=== PATIENT | female | born 1980 | race Caucasian/White ===

== ENCOUNTER 2020-04-03 04:52 | Emergency (ER) | payer OTHER, BC, SELFPAY ==
--- NOTE | ~2020-04-03 | CT_ITS ---
EXAMINATION: CT abdomen pelvis wo con DATE: 04/03/2020 06:36 INDICATION: Right flank pain radiating to the right lower quadrant. Nausea. TECHNIQUE: Computed tomography (CT) of the abdomen and pelvis was performed without intravenous contr ast. Automated exposure control and iterative reconstruction technique were employed. The dose-length product was 675.95 mGy-cm. COMPARISON: None FINDINGS: Lung bases are clear. Heart size is normal. No pericardial or pleural effusion. Gallbladder is not vi sualized and likely surgically absent. Liver, spleen, pancreas, bilateral adrenal glands and kidneys are normal. Bladder, uterus and bilateral adnexa are normal. There are multiple small calcifications along the margins of the uterus most likely phleboliths although a couple are located along the expec antony course of the distal right ureter and a ureteral stone cannot be absolutely excluded although the re is no hydronephrosis, hydroureter or more proximal periureteral stranding to elevate suspicion. Chava wels including the appendix are normal. Trace amount of likely physiologic free fluid in the cul-de-s ac. No pathologically enlarged abdominal or pelvic lymphadenopathy. Mild lumbar dextrocurvature. IMPRESSION: 1. Several small calcifications in the right hemipelvis most likely representing phleboliths although a nonobstructing distal ureteral stone could not be absolutely excluded. Suspicion ureteral stone is low but would correlate with urinalysis. No other acute intra-abdominal/pelvic process. Reviewed, dictated and finalized at location A. IMPRESSION: 1. Several small calcifications in the right hemipelvis most likely representin g phleboliths although a nonobstructing distal ureteral stone could not be abso lutely excluded. Suspicion ureteral stone is low but would correlate with urina lysis. No other acute intra-abdominal/pelvic process.
[2020-04-03 04:54] VITALS: BP 145/106; PULSE 88; RESP 16; TEMP 36.9; O2SAT 99
--- NOTE | 2020-04-03 05:06 | ED.ABDPAIN ---
HPI - Abdominal Pain General Chief Complaint: Abdominal Pain Stated Complaint: abd pain History of Present Illness HPI narrative: Patient is a 39-year-old female who presents the ER with abdominal pain. Sudden onset this evening. Fullness in her upper abdomen radiating to the right back. Associate with nausea but no vomiting. Symptoms are worse with movement and better with sitting still. Has not had similar pain in the past. Has history of cholecystectomy. No urinary symptoms. Related Data Allergies Allergy/AdvReac Type Severity Reaction Status Date / Time gentamicin Allergy Intermediate rash, Verified 04/03/20 04:57 short of breath latex Allergy Intermediate rash Verified 08/22/10 12:30 Review of Systems Review of Systems: All systems reviewed & are unremarkable except as noted in HPI and below Constitutional: Constitutional: Denies chills, Denies fever(s) and Denies weakness ENT: Denies nasal congestion and Denies sore throat Respiratory: Respiratory: Denies cough and Denies dyspnea Gastrointestinal: Gastrointestinal: Reports abdominal pain, Denies diarrhea, Reports nausea and Denies vomiting Genitourinary: Genitourinary: Denies hematuria, Denies nocturia and Denies dysuria PMFSH Past Medical History Medical History (Updated 04/03/20 @ 07:18 by Natanael Knapp MD) Patient denies significant medical history Surgical History Surgical History (Updated 04/03/20 @ 05:21 by Natanael Knapp MD) History of cholecystectomy History of tonsillectomy Social History Social History (Updated 04/03/20 @ 05:21 by Natanael Knapp MD) Smoking status: Never smoker Exam Narrative: Exam Narrative: GENERAL: Well-appearing, well-nourished, and in no acute distress. HEAD: Normocephalic, atraumatic. EYES: PERRL and EOMI. ENT: Mucous membranes moist. CHEST: Clear to auscultation. No respiratory distress. HEART: Regular rate and rhythm. Normal peripheral pulses. ABDOMEN: Soft, mild discomfort in epigastrium/ruq, nondistended, normal active bowel sounds. Mild right CVA tenderness. EXTREMITIES: Normal range of motion. No edema NEURO: Alert and oriented x3. PSYCH: Normal mood and affect. Course Course Emergency Course: Patient informed of results. She could still be passing a stone. Will provide supportive therapy for home and a work note. Vital Signs Vital signs: Vital Signs Temperature 98.4 F 06/09/20 04:54 Pulse Rate 88 04/03/20 04:54 Respiratory Rate 16 04/03/20 04:54 Blood Pressure 145/106 H 04/03/20 04:54 Pulse Oximetry 99 04/03/20 04:54 Temperature 98.4 F 04/03/20 04:54 Pulse Rate 99 04/03/20 06:04 Respiratory Rate 14 04/03/20 06:04 Blood Pressure 126/84 04/03/20 06:04 Pulse Oximetry 99 04/03/20 06:04 MDM - Abdominal Pain Lab Data Result diagrams: 04/03/20 05:04 04/03/20 05:04 Labs: Lab Results 04/03/20 04/03/20 04/03/20 Range/Units 05:04 05:04 06:10 WBC 5.2 (4.5-10.0) K/mm3 RBC 4.54 (4.2-5.4) M/mm3 Hgb 14.1 (12.0-15.0) g/dL Hct 42.8 (37.0-47.0) % MCV 94.3 (80-100) fl MCH 31.1 (26-34) pg MCHC 32.9 (32-36) g/dl RDW 13.1 (11.5-14.5) % Plt Count 236 (150-375) k/mm3 MPV 10.5 H (7.4-10.4) fl Immature Gran % (Auto) 0.2 (0-0.5) % Neut % (Auto) 49.3 (45.5-73.1) % Lymph % (Auto) 37.0 (18.3-44.2) % [place] % (Auto) 9.6 H (2.6-8.5) % Eos % (Auto) 3.3 (0-4.4) % Baso % (Auto) 0.6 (0.2-1.2) % Lymph # (Auto) 1.93 (0.9-3.2) K/mm3 [place] # (Auto) 0.5 (0.1-0.6) K/mm3 Eos # (Auto) 0.2 (0-0.3) K/mm3 Baso # (Auto) 0.0 (0.0-0.1) K/mm3 Abs Immat Gran (auto) 0.01 (0.00-0.031) K/mm3 Absolute Neuts (auto) 2.6 (1.3-6.7) K/mm3 Absolute Nucleated RBC 0.0 (0.0-0.012) K/mm3 Nucleated RBC % 0.0 (0.0-0.2) % Sodium 138 (137-145) mmol/L Potassium 3.8 (3.4-5.0) mmol/L Chloride 104 (98-107) mmol/L Carbon Seng
[2020-04-03] MEDS: ONDANSETRON INJ 4 MG/2 ML VIAL IV PUSH (05:12)
[2020-04-03 05:13] LABS: Basophils Percent Auto 0.6 % (0.2-1.2); Eosinophils Absolute Auto 0.2 K/mm3 (0-0.3); Eosinophils Percent Auto 3.3 % (0-4.4); Hematocrit 42.8 % (37.0-47.0); Hemoglobin 14.1 g/dL (12.0-15.0); Immature Granulocyte Absolute 0.01 K/mm3 (0.00-0.031); Immature Granulocyte Percent A 0.2 % (0-0.5); Lymphocytes Absolute Auto 1.93 K/mm3 (0.9-3.2); Mean Corpuscular HGB Conc 32.9 g/dl (32-36); Mean Corpuscular Hemoglobin 31.1 pg (26-34); Mean Corpuscular Volume 94.3 fl (80-100); Mean Platelet Volume 10.5 fl (7.4-10.4); Monocytes Absolute Auto 0.5 K/mm3 (0.1-0.6); Monocytes Percent Auto 9.6 % (2.6-8.5); Neutrophils Absolute Auto 2.6 K/mm3 (1.3-6.7); Neutrophils Percent Auto 49.3 % (45.5-73.1); Platelet Count Result 236 k/mm3 (150-375); Red Blood Count 4.54 M/mm3 (4.2-5.4); Red Cell Distribution Width 13.1 % (11.5-14.5); White Blood Count 5.2 K/mm3 (4.5-10.0)
--- NOTE | 2020-04-03 05:20 | PC.NURSE ---
Patient states she does not want pain medications at this time. EDP Ra notified.
[2020-04-03 05:30] LABS: Alanine Aminotransferase 12 U/L (4-35); Albumin Level 4.4 g/dL (3.5-5.1); Alkaline Phosphatase 97 U/L (38-126); Aspartate Amino Transferase 20 U/L (14-36); Bilirubin,Total 0.5 mg/dL (0.2-1.3); Blood Urea Nitrogen 11 mg/dL (7-17); Calcium 9.1 mg/dL (8.4-10.2); Carbon Dioxide 26 mmol/L (22-30); Chloride 104 mmol/L (98-107); Estimated CRCL calculation 63 ml/min; Estimated Glomerular Filt Rate 55; Glucose 102 mg/dL (65-105); Lipase 128 U/L (23-300); Potassium 3.8 mmol/L (3.4-5.0); Sodium 138 mmol/L (137-145)
--- NOTE | 2020-04-03 05:49 | PC.NURSE ---
Patient states she is still unable to provide a urine sample at this time.
[2020-04-03 06:04] VITALS: BP 126/84; PULSE 99; RESP 14; O2SAT 99
[2020-04-03 06:20] LABS: Add Urine Microscopic? NO; Appearance Urine Clear (Clear); Bilirubin Urine Negative (Negative); Blood Urine Negative (Negative); Color Urine Yellow (Yellow); Glucose Urine UA Negative (Negative); Ketones Urine Negative (Negative); Leukocyte Esterase Ur Negative LEU/UL (Negative); Nitrate Urine Negative (Negative); Protein Urine Negative (Negative); Specific Grav Ur 1.016 (1.001-1.035); Urobilinogen Urine Negative mg/dL (<2.0)
--- NOTE | 2020-04-03 06:29 | PC.NURSE ---
Patient to radiology.
[2020-04-03 07:17] VITALS: BP 132/88; PULSE 66; RESP 18; O2SAT 100
--- NOTE | 2020-04-03 07:19 | PC.NURSE ---
Doctor at bedside updating patient.
== END 2020-04-03 07:32 | disposition home or self-care (01) ==
PROVIDERS: Emergency Provider Emergency Medicine
DX: R10.10 Upper abdominal pain, unspecified (principal); R93.41 Abnormal radiologic findings on diagnostic imaging of renal pelvis, ureter, or bladder
CPT/HCPCS: 36415; 74176; 80053; 81003; 81025; 83690; 85025; 96374; 96375; 99284; J2405

== ENCOUNTER 2020-10-01 08:21 | Emergency (ER) | payer OTHER, SELFPAY ==
[2020-10-01] VITALS (42 sets, daily range): BP systolic 115–140; BP diastolic 82–99; PULSE 69–92; RESP 11–28; TEMP 36.8; O2SAT 94–100
--- NOTE | ~2020-10-01 | XR_ITS ---
EXAMINATION: XR chest 2V DATE: 10/01/2020 08:50 INDICATION: Chest pain. TECHNIQUE: Frontal and lateral views of the chest were obtained. COMPARISON: Chest single view 08/03/2019, CT abdomen and pelvis 04/03/2020 FINDINGS: The chest demonstrates clear lungs without pneumonia, pleural effusion, or pneumothorax. Th e heart size is normal. IMPRESSION: 1. . No acute cardiopulmonary disease. Reviewed, dictated and finalized at location B. CLE TECHNICIAN
--- NOTE | 2020-10-01 08:25 | ECG_ITS ---
Measurements Intervals [place] Rate: 77 P: 44 IN: 119 QRS: 38 QRSD: 89 T: 38 QT: 369 QTc: 418 Interpretive Statements SINUS RHYTHM WITH SHORT IN INTERVAL BORDERLINE ST-T WAVE ABNORMALITY- INFERIOR LEADS BORDERLINE ECG Electronically Signed On 10-01-2020 11:15:14 SENIOR TREASURY CONSULTANT by Tristan Moran D.O.
--- NOTE | 2020-10-01 08:36 | ED.CHESTPAIN ---
HPI - Chest Pain General Chief Complaint: Chest Pain Stated Complaint: chest pain x 1 week, worse today Time Seen by Provider: 10/01/20 08:35 Source: patient Mode of arrival: ambulatory Limitations: no limitations History of Present Illness HPI narrative: Patient is a 40-year-old female complaining of chest pain, midsternal, 6 out of 10, pressure accompanied by nausea and dizziness that started approximately 1 week ago. Patient states pain is worse today that is why she came in. Patient denies any shortness of breath, abdominal pain, vomiting, diaphoresis, fever or chills. Related Data Home Medications Medication Instructions Recorded Confirmed No Home Medications 10/01/20 10/01/20 Allergies Allergy/AdvReac Type Severity Reaction Status Date / Time gentamicin Allergy Intermediate rash, Verified 04/03/20 04:57 short of breath Review of Systems Review of Systems: All systems reviewed & are unremarkable except as noted in HPI and below Constitutional: Constitutional: Denies body ache(s), Denies chills, Denies excessive sweating, Denies fatigue, Denies fever(s), Denies headache(s), Denies lethargy, Denies malaise, Denies weakness and Denies weight loss Eyes: Eyes: Denies blurry vision, Denies change in vision and Denies loss of vision ENT: Denies dizziness, Denies ear discharge, Denies headache(s), Denies lip swelling, Denies epistaxis, Denies nasal congestion, Denies neck pain, Denies throat swelling and Denies tongue swelling Cardiovascular: Cardiovascular: Denies diaphoresis, Denies rapid heart rate, Denies edema, Denies irregular heart rhythm, Denies lightheadedness, Denies palpitations, Denies dyspnea and Denies dyspnea on exertion Respiratory: Respiratory: Denies chest congestion, Denies cough, Denies hemoptysis, Denies dyspnea and Denies dyspnea on exertion Gastrointestinal: Gastrointestinal: Denies abdominal pain, Denies melena, Denies hematochezia, Denies diarrhea, Denies vomiting and Denies hematemesis Musculoskeletal: Musculoskeletal: Denies abnormal gait, Denies deformity, Denies joint swelling, Denies limited range of motion, Denies neck pain and Denies numbness Neurologic: Denies Abnormal speech present, Denies abnormal gait, Denies confusion, Denies headache(s), Denies focal weakness, Denies loss of vision, Denies numbness, Denies Other visual disturbances, Denies Sensory deficit (Neuro) and Denies weakness Psychiatric: Psychiatric: Denies confusion, Denies depression, Denies auditory hallucinations, Denies homicidal ideation and Denies suicidal ideation Endocrine: Endocrine: Denies cold intolerance, Denies excessive sweating, Denies fatigue, Denies heat intolerance and Denies palpitations Hematologic/Lymphatic: Hematologic/Lymphatic: Denies easy bleeding and Denies easy bruising Allergic/Immunologic: Allergic/Immunologic: Denies lip swelling, Denies throat swelling and Denies tongue swelling PMFSH Past Medical History Medical History (Updated 10/01/20 @ 13:03 by Brien Archuleta MD) Patient denies significant medical history Surgical History Surgical History (Updated 04/03/20 @ 05:21 by Natanael Knapp MD) History of cholecystectomy History of tonsillectomy Social History Social History (Updated 04/03/20 @ 05:21 by Natanael Knapp MD) Smoking status: Never smoker Gender identity (if verbalized by the patient): Female Exam Const: General: cooperative, healthy appearing, comfortable, no acute distress, well developed, alert and awake; No confusion Orientation/consciousness: oriented to person, oriented to place, oriented to time, patient oriented x3 and No confusion Limitations: no limitations HENMT: Head: normal to inspection, normocephalic and atraumatic Ears: hearing grossly normal bilaterally, TM normal on the right and TM normal on the left General nose exam: Normal external nose present, Normal nares present and No nasal discharge present Face and sinus: norm
[2020-10-01] MEDS: ASPIRIN 81 MG CHEWABLE TABLET 324 MG PO (08:38)
[2020-10-01 08:46] LABS: Basophils Percent Auto 0.5 % (0.2-1.2); Eosinophils Absolute Auto 0.1 K/mm3 (0-0.3); Eosinophils Percent Auto 1.2 % (0-4.4); Hematocrit 42.4 % (37.0-47.0); Hemoglobin 14.3 g/dL (12.0-15.0); Immature Granulocyte Absolute 0.02 K/mm3 (0.00-0.031); Immature Granulocyte Percent A 0.3 % (0-0.5); Lymphocytes Absolute Auto 1.46 K/mm3 (0.9-3.2); Lymphocytes Percent Auto 19.5 % (18.3-44.2); Mean Corpuscular HGB Conc 33.7 g/dl (32-36); Mean Corpuscular Volume 94.9 fl (80-100); Monocytes Absolute Auto 0.7 K/mm3 (0.1-0.6); Monocytes Percent Auto 8.9 % (2.6-8.5); Neutrophils Absolute Auto 5.2 K/mm3 (1.3-6.7); Neutrophils Percent Auto 69.6 % (45.5-73.1); Platelet Count Result 271 k/mm3 (150-375); Red Blood Count 4.47 M/mm3 (4.2-5.4); White Blood Count 7.5 K/mm3 (4.5-10.0)
[2020-10-01 08:54] LABS: INR 0.9; Partial Thromboplastin Time 26.9 SECONDS (22.3-36.8); Prothrombin Time 13.2 Seconds (11.1-14.7)
[2020-10-01 09:00] LABS: Anion Gap 5 mmol/L (8-16); Blood Urea Nitrogen 13 mg/dL (7-17); Calcium 9.2 mg/dL (8.4-10.2); Carbon Dioxide 29 mmol/L (22-30); Chloride 105 mmol/L (98-107); Estimated CRCL calculation 68 ml/min; Estimated Glomerular Filt Rate > 60; Glucose 103 mg/dL (65-105); Potassium 4.2 mmol/L (3.4-5.0); Sodium 139 mmol/L (137-145)
[2020-10-01 09:12] LABS: Troponin I < 0.012 ng/mL (0.000-0.034)
--- NOTE | 2020-10-01 09:50 | PC.NURSE ---
lab aware of d dimer add on/ray.
[2020-10-01 10:07] LABS: D Dimer 0.41 ug/mL (<0.48)
--- NOTE | 2020-10-01 10:49 | PC.NURSE ---
UPON ROUNDING ON PT AND UPDATING HER WITH PT PLAN OF CARE TO REPEAT 3HOUR TROPONIN, SHE STATES THAT SHE WILL BE SPEAKING WITH CARDIOLOGY BEFORE I LEAVE BECAUSE MY BLOOD PRESSURE IS VAUGHN HIGH. PT BP 129/93. SANTO JEFF INFORMED OF PT CONCERNS AND IS AT BEDSIDE.
--- NOTE | 2020-10-01 11:09 | PC.NURSE ---
report to nela messina at this time. she has assumed pt care.
[2020-10-01 12:13] LABS: Troponin I < 0.012 ng/mL (0.000-0.034)
--- NOTE | 2020-10-01 13:13 | PM.CNCAR ---
Assessment and Plan Assessment and plan (1) Atypical chest pain: Code(s): R07.89 - Other chest pain Status: Acute Assessment and Plan: EKG personally reviewed with Dr. Cho at 1205 10/01/2020: Sinus rhythm with short MN interval (119ms) at 77 beats per minute. No acute ST T wave changes. Normal EKG. Troponin negative x1 Chest pain is atypical. If 2nd troponin is negative, she can be discharged from the emergency room. Follow-up with Primary Care Provider. Consider GI etiology. Recommend Nexium 20 mg b.i.d. Can continue Pepcid AC if desired. Also try Gaviscon. She is interested in changing to Dr. Cho from . She is to call the office for an appointment. Additional Plan Dr Cho in to examine at 1205 10/01/2020 OK to discharge if second troponin in negative History of Present Illness History of Present Illness Consult date/time: 10/01/20 11:35 Requesting physician: Brien Archuleta MD Consult reason: chest pain Reason For Visit: chest pain x 1 week, worse today Narrative: 40 year old female being seen in the ER at the request of Dr Archuleta for evaluation of chest pain. She describes her discomfort as a pressure in the upper right and left chest which radiated to her arms, up to the elbow, as well as up her neck. The discomfort started last Thursday after she experienced palpitations with an episode of tachycardia. The tachycardia broke but the chest discomfort did not. The discomfort waxed and waned Thursday, Thursday and became more constant on Thursday and worsened Thursday and today. She is unable to lay flat due to the pressure discomfort. It does resolve with sitting forward. She denied any associated shortness of breath, lightheadedness, dizziness or palpitations. It does not increase with deep inspiration. She has a history of GERD which resolved after her gallbladder was removed. She tried Pepcid AC without much relief. There is minimal discomfort to palpation at the left sternal border, 4th intercostal space. Today she had nausea and vomiting associated with the discomfort and decided to come to the emergency room for evaluation. She has no history hypertension, hyperlipidemia or diabetes. She quit smoking approximately 15 years ago. She has been followed by Dr. Zaira Calloway for a number of years as her father of a myocardial infarction at age 45. Review of Systems Constitutional: Constitutional: Denies chills, Reports difficulty sleeping (Due to discomfort), Reports fatigue, Denies fever(s), Reports headache(s) ( occasional), Reports night sweats ( on Thursday), Denies weight gain and Denies weight loss Eyes: Eyes: Denies blind spots, Denies blurry vision, Denies change in vision, Denies diplopia and Reports floaters ( 1-2 years) ENT: Reports Normal hearing present, Denies bleeding gums, Denies vertigo, Denies dizziness, Reports headache(s) ( occasional), Reports hoarseness ( ), Reports nasal congestion and Reports other ( seasonal allergies) Cardiovascular: Cardiovascular: Reports chest pain ( per HPI), Denies syncope, Reports rapid heart rate ( Thursday, September 25, 2020), Denies leg edema, Denies lightheadedness, Denies dyspnea, Denies dyspnea on exertion, Denies orthopnea and Reports other ( varicose veins) Respiratory: Respiratory: Denies change in phlegm color, Denies chest congestion, Reports cough ( Dry. Hacking. Increased in the morning), Denies hemoptysis, Denies dyspnea, Denies dyspnea on exertion and Denies wheezing Gastrointestinal: Gastrointestinal: Reports abdominal pain ( after eating Thursday), Denies hematochezia, Denies change in bowel habits, Denies constipation, Reports heartburn, Denies diarrhea, Reports nausea ( today) and Reports vomiting ( today) Genitourinary: Genitourinary: Denies hematuria and Reports urinary incontinence ( stress incontinence) Musculoskeletal: Musculoskeletal: De
== END 2020-10-01 13:24 | disposition home or self-care (01) ==
PROVIDERS: Emergency Provider Emergency Medicine; PCP Internal Medicine
DX: R07.89 Other chest pain (principal)
CPT/HCPCS: 36415; 71046; 80048; 84484; 85025; 85380; 85610; 85730; 93005; 99284; A9270

== ENCOUNTER → 2021-01-02 14:00 | Outpatient (CLI) | payer OTHER, SELFPAY ==
--- NOTE | ~2021-01-02 | MR_ITS ---
EXAMINATION: MR brain/brain stem wo/w con DATE: 01/02/2021 15:57 INDICATION: Right hemiparesis. Cranial neuropathy. TECHNIQUE: Magnetic resonance imaging (MRI) of the brain and brainstem was performed without and with 15 mL MultiHance intravenous contrast. Sequences included sagittal and axial T1-weighted FSE, axial diffusion-weighted FS EPI, axial T2*-weighted GRE, axial T2-weighted FLAIR Propeller, and axial T2-we ighted Propeller. Postcontrast sequences included axial and coronal T1-weighted FSE. Apparent diffusi on coefficient (ADC) maps were created. COMPARISON: None. FINDINGS: There is no intracranial hemorrhage or acute infarct. There is an enhancing extra-axial mas s to the right of the dina with mass effect on the dina. The mass either involves the right side of t he cavernous sinus or exerts mass effect on the cavernous sinus. The mass measures 2.1 x 1.9 x 2.4 cm . There is no visible fluid in Meckel cave on the right. The ventricles are normal in size. The masto id air cells are normal. The paranasal sinuses are clear. The orbits are normal. IMPRESSION: 1. 2.4 cm extra-axial mass to the right of the dina and at the right side of the cavernous sinus. The differential diagnosis includes meningioma and trigeminal schwannoma. Reviewed, dictated and finalized at location A. CARPENTER IMPRESSION: 1. 2.4 cm extra-axial mass to the right of the dina and at the right side of th e cavernous sinus. The differential diagnosis includes meningioma and trigemina l schwannoma.
--- NOTE | ~2021-01-02 | MR_ITS ---
EXAMINATION: MR cervical spine wo con DATE: 01/02/2021 15:23 INDICATION: Cervical radiculopathy. TECHNIQUE: Magnetic resonance imaging (MRI) of the cervical spine was performed without intravenous c ontrast. Sequences included sagittal T2-weighted FSE, sagittal STIR FSE, sagittal T1-weighted FSE, ax ial MERGE, and axial T2-weighted FSE. COMPARISON: None FINDINGS: There is hypolordosis of cervical spine. Vertebral body heights are normal. Intervertebral disc heights are normal. At C7, there is syringohydromyelia with maximum diameter of 1 mm. The follow ing disc levels are specifically discussed: C2-C3 through C4-C5: The disc does not extend beyond the endplate margin. There is no uncovertebral j oint osteoarthritis. There is no facet joint osteoarthritis. There is no neural foraminal stenosis. T here is no central canal stenosis. C5-C6: There is a central protrusion. There is no uncovertebral joint osteoarthritis. There is no fac et joint osteoarthritis. There is no neural foraminal stenosis. There is mild central canal stenosis. C6-C7: There is a central protrusion. There is no uncovertebral joint osteoarthritis. There is no fac et joint osteoarthritis. There is no neural foraminal stenosis. There is mild central canal stenosis. C7-T1: The disc does not extend beyond the endplate margin. There is no uncovertebral joint osteoarth ritis. There is mild right and moderate left facet joint osteoarthritis. There is mild left neural fo raminal stenosis. There is no central canal stenosis. IMPRESSION: 1. Mild cervical spondylosis. 2. 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 Reviewed, dictated and finalized at location A. RVISOR MOLD YARD
[2021-01-02 15:18] LABS: Estimated Glomerular Filt Rate > 60
== END ==
PROVIDERS: PCP Internal Medicine; Visit Provider Internal Medicine
DX: M47.22 Other spondylosis with radiculopathy, cervical region (principal); G62.9 Polyneuropathy, unspecified
CPT/HCPCS: 70553; 72141; A9577

== ENCOUNTER 2021-02-22 15:49 | Emergency (ER) | payer OTHER, SELFPAY ==
--- NOTE | ~2021-02-22 | XR_ITS ---
EXAMINATION: XR ankle RT min 3V, XR foot RT min 3V DATE: 02/22/2021 16:40 INDICATION: Right foot and ankle pain TECHNIQUE: 1. Anteroposterior, mortise, additional oblique and lateral view of the right ankle were obtained. 2. Dorsoplantar, two oblique and lateral views of the right foot were obtained. COMPARISON: None. FINDINGS: Alignment of the foot and ankle is normal. No fracture or osteochondral lesion. Joint spaces are well maintained. No ankle joint effusion. The soft tissues are unremarkable. IMPRESSION: 1. Negative right foot and ankle radiographs. Reviewed, dictated and finalized at location A. IMPRESSION: 1. Negative right foot and ankle radiographs.
[2021-02-22 16:01] VITALS: BP 135/87; PULSE 77; RESP 20; TEMP 36.3; O2SAT 100
--- NOTE | 2021-02-22 16:15 | ED.LOWEXIN ---
HPI - Extremity Injury (Lower) General Chief Complaint: Extremity Injury, Lower Stated Complaint: right ankle pain, fall Time Seen by Provider: 02/22/21 16:05 Source: patient Mode of arrival: wheelchair Limitations: no limitations History of Present Illness HPI Narrative: This is a 40 year old female that presents to the ER for right ankle and foot pain after an injury today. Reports she was walking out of work and twisted her ankle stepping onto a curb. Reports pain and swelling to the lateral ankle. Worse with movement and relieved with rest. Reports decreased range of motion due to pain. Denies numbness. Related Data Home Medications Medication Instructions Recorded Confirmed ascorbic acid 125 mg-collagen, cap PO 11/27/20 11/27/20 hydrolyzed 740 mg capsule Allergies Allergy/AdvReac Type Severity Reaction Status Date / Time gentamicin Allergy Intermediate rash, Verified 11/27/20 09:33 short of breath Review of Systems Review of Systems: Narrative: CONSTITUTIONAL: Denies fever MUSCULOSKELETAL: Reports joint pain, and myalgia. NEUROLOGIC: Denies numbness All systems reviewed & are unremarkable except as noted in HPI and below PMFSH Past Medical History Medical History (Updated 02/22/21 @ 17:05 by Aissatou Hudson PA-C) Anxiety GERD (gastroesophageal reflux disease) Surgical History Surgical History History of breast biopsy History of cholecystectomy History of dilation and curettage History of laparoscopy History of tonsillectomy Family History Family History Father Acute myocardial infarction, Onset Age: 45 Sibling Thrombosis Grandparent Diabetes mellitus Cerebrovascular accident Mother Hypertension Social History Social History Years smoked: 8 Smoking status: Former smoker Tobacco type: cigarettes Alcohol intake: never Substance use: never Substance use type: does not use Additional living arrangements comments: . Designates , Oumar Rai as surrogate. 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 HEAD: Normocephalic, atraumatic. EYES: EOMI. EXTREMITIES: Decreased active range of motion in the right ankle due to pain. No obvious deformity. Normal DP pulses. Normal sensation SKIN: Warm, dry, no rash. NEURO: No focal deficits. Alert and oriented x3. PSYCH: Normal mood and affect Course Vital Signs Vital signs: Vital Signs Temperature 97.3 F L 02/22/21 16:01 Pulse Rate 77 02/22/21 16:01 Respiratory Rate 20 02/22/21 16:01 Blood Pressure 135/87 02/22/21 16:01 Pulse Oximetry 100 02/22/21 16:01 Temperature 97.3 F L 02/22/21 16:01 Pulse Rate 77 02/22/21 16:01 Respiratory Rate 20 02/22/21 16:01 Blood Pressure 135/87 02/22/21 16:01 Pulse Oximetry 100 02/22/21 16:01 MDM - Extremity Injury (Lower) MDM Narrative Medical decision making narrative: Patient presents the emergency department for right ankle pain after an injury today. She is neurovascularly intact. Right foot and ankle x-rays are without acute osseous abnormalities. Patient was instructed on care of ankle sprain. She is to follow-up with primary care doctor. She was given warnings to return to the ER Imaging Data Radiologist's impression: ITS Impressions Ankle X-Ray 02/22/21 16:43 IMPRESSION: 1. Negative right foot and ankle radiographs. Foot X-Ray 02/22/21 16:43 IMPRESSION: 1. Negative right foot and ankle radiographs. Critical Care Time Critical Care Time Critical Care Time: No Discharge Plan Discharge Clinical Impression: Right ankle
[2021-02-22] MEDS: IBUPROFEN SUSPENSION 200 MG/10 ML UDC 600 MG PO (16:21)
== END 2021-02-22 17:10 | disposition home or self-care (01) ==
PROVIDERS: Emergency Provider Emergency Medicine; PCP Internal Medicine
DX: S93.401A Sprain of unspecified ligament of right ankle, initial encounter (principal); K21.9 Gastro-esophageal reflux disease without esophagitis; Z87.891 Personal history of nicotine dependence; X50.9XXA Other and unspecified overexertion or strenuous movements or postures, initial encounter
CPT/HCPCS: 73610; 73630; 99283; A9270

== ENCOUNTER 2021-06-11 07:30 | Outpatient (RCR) | payer OTHER, SELFPAY ==
--- NOTE | 2021-04-19 11:01 | PTOPEVAL ---
Thank you for referring Merle Winkler to [facility].? The patient is scheduled to be seen for therapy?2 x/week for 6 weeks. Please review, sign, date and return this plan of care MILY. I agree with and certify that the following plan of care is medically necessary. Referring Physician Date Attending Provider: Mimi Sequeira NP Diagnosis right ankle sprain Onset 02/22/21 Cause slipped on gravel Additional Evaluation Detail Previous exercise walking, running, light resistance. She has not returned to exercise program due to pain. Subjective Information She reports limitation with Query Text:As Reported By Patient/ walking, standing, negotiating Family steps with descending worse than ascending. C/o stiffness and tightness of the ankle. She c/o swelling of ankle. She has increased stiffness in the morning or prolonged sitting. She was in a walking boot and crutches for <1 week due to pain with pressure. She switched to knee scooter. She did NWB due to pain with all WB activities for 3-4 wks. She was performing limited ankle motions of alphabet and circles. She is wearing ankle brace, heat/ice for the symptoms. Diagnostic Tests X-Rays For This Problem Yes: negative Pain Assessment Self Report Pain Assessment Right Ankle(s) Reported Pain Level 2 Pain Description Aching,Tightness Pain Frequency Continuous Lowest Pain Intensity 1 Greatest Pain Intensity 8 Pain Aggravating Factors Exercise/Activity,Lifting, Prolonged Position,Stair Climbing,Walking,Weight Bearing/Standing Pain Score Pain Score 2: Self Report Lower Extremity Range of Motion Ankle/Foot Range of Motion Left Ankle Dorsiflexion With Knee Extension 2 Range of Motion - Active Ankle Plantarflexion Range of Motion - 55 Active Query Text: Ankle Eversion Range of Motion - Active 25 Ankle Inversion Range of Motion - Active 40 Right Ankle Dorsiflexion With Knee Extension 2 Range of Motion - Active Ankle Dorsiflexion With Knee Flexed 55 Range of Motion - active
--- NOTE | 2021-05-07 08:36 | PCPTNOTE ---
Patient called & cancelled scheduled appointment this date due to having to work.
--- NOTE | 2021-05-23 08:42 | PTOPEVAL ---
Thank you for referring Merle Winkler to [facility].?Merle has attended 7 therapy visits to address her ankle impairments. She is progressing towards her therapy goals. See summary below for her progress. The patient is scheduled to be seen for therapy? 2 x/week for 2weeks, then 1 visit for 1 week. Please review, sign, date and return this plan of care MILY. I agree with and certify that the following plan of care is medically necessary. Referring Physician Date Attending Provider: Mimi Sequeira NP Diagnosis right ankle sprain Onset 02/22/21 Cause slipped on gravel Additional Evaluation Detail Previous exercise walking, running, light resistance. She has not returned to exercise program due to pain. Subjective Information She reports her ankle Query Text:As Reported By Patient/ continues to swell with Family prolonged standing and working. She has been able to walk for exercise, but unable to tolerate running due to increased pain. She is able to walk even ground without difficulty. But difficulty walking grass, rocks or uneven surfaces. She is able to negotiate 1 flight of steps, but increased pain and difficulty with 2 flights. Descending steps is getting better. C/o stiffness and tightness of the ankle. She c/o swelling of ankle. she is not wearing the ankle brace anymore. Pain Assessment Self Report Pain Assessment Right Ankle(s) Reported Pain Level 2 Greatest Pain Intensity 7 Lower Extremity Range of Motion Ankle/Foot Range of Motion Right Ankle Dorsiflexion With Knee Extension 5 - Active Ankle Plantarflexion Range of Motion - 60 Active Ankle Eversion Range of Motion - Active 28 Ankle Inversion Range of Motion - Active 30 Lower Extremity Muscle Strength Testing Ankle Strength Right Ankle Dorsiflexion Strength 5 Normal Ankle Plantarflexion Strength 4 Good Ankle Eversion Strength 4+ Good + Ankle Inversion Strength 4+ Good + Ankle Strength Comments aline heel raises x 20 reps, single heel raises 10 reps, then decreased control of LE pain with inv resistance. Palpation Assessment Palpation significant te
--- NOTE | 2021-05-30 13:37 | PCPTNOTE ---
Patient called & cancelled scheduled appointment this date due to work meeting.
--- NOTE | 2021-06-04 14:45 | PCPTNOTE ---
Patient called & cancelled scheduled appointment this date due to work.
--- NOTE | 2021-06-05 16:26 | PCPTNOTE ---
Patient called & cancelled scheduled appointment this date due to severe migraine
--- NOTE | 2021-06-11 08:34 | PTOPEVAL ---
Physical therapy progress note/discharge Thank you for referring Merle Winkler to [facility].? Merle has received 9 therapy visits to address ankle pain. She has achieved her therapy goals at this time. She demonstrates improved ankle motion, improved strength and ability to perform normal work and recreational activities. Will DC skilled therapy services at this time. Please review, sign, date and return this discharge summary MILY. I agree with and certify that the following plan of care is medically necessary. Referring Physician Date Attending Provider: HAL Dumont Diagnosis right ankle sprain Onset 02/22/21 Cause slipped on gravel Additional Evaluation Detail Previous exercise walking, running, light resistance. She has not returned to exercise program due to pain. Subjective Information She cont to have tightness of Query Text:As Reported By Patient/ the ankle with stretching. She Family continues to have acheness of the ankle with work. She reports increased swelling with prolonged standing and working. She has been able to walk for exercise, but only tolerating short burst of running. She is playing tennis without limitations except for occasional sharp turns. Difficulty walking rocks or uneven surfaces. She denies any problems with steps. Pain Assessment Right Ankle(s) Reported Pain Level 0 Pain Description Aching Pain Frequency Intermittent Lowest Pain Intensity 1 Greatest Pain Intensity 6 Pain Aggravating Factors Exercise/Activity,Weight Bearing/Standing Lower Extremity Range of Motion Ankle/Foot Range of Motion Right Ankle Dorsiflexion With Knee Extension 3 Range of Motion - Active Ankle Plantarflexion Range of Motion - 60 Active Query Text: Ankle Eversion Range of Motion - Active 30 Ankle Inversion Range of Motion - Active 38 Foot/Toe Range of Motion Comments no pain with ankle motion great toe ext: 50 dg Lower Extremity Muscle Strength Testing Hip Strength Right Hip Flexion Strength 5 Normal Hip Extension Strength 5 Normal Hip Abduction Strength 4 Good Knee Strength Right Knee Flexion Strength 5 Normal Knee Extension Strength 5 Normal
== END 2021-06-11 15:28 | disposition home or self-care (01) ==
LOC: ANHPT 07:30
PROVIDERS: PCP Internal Medicine
DX: M25.571 Pain in right ankle and joints of right foot (principal)
CPT/HCPCS: 97035; 97110; 97112; 97140; 97161

== ENCOUNTER 2021-12-12 08:46 | Outpatient (CLI) | payer OTHER, SELFPAY ==
[2021-12-12 09:37] LABS: Basophils Absolute Auto 0.1 K/mm3 (0.0-0.1); Basophils Percent Auto 0.8 % (0.2-1.2); Eosinophils Absolute Auto 0.1 K/mm3 (0-0.3); Eosinophils Percent Auto 2.2 % (0-4.4); Hematocrit 42.5 % (37.0-47.0); Immature Granulocyte Absolute 0.02 K/mm3 (0.00-0.031); Immature Granulocyte Percent A 0.3 % (0-0.5); Lymphocytes Absolute Auto 1.45 K/mm3 (0.9-3.2); Lymphocytes Percent Auto 24.6 % (18.3-44.2); Mean Corpuscular HGB Conc 32.9 g/dl (32-36); Mean Corpuscular Volume 94.2 fl (80-100); Mean Platelet Volume 10.2 fl (7.4-10.4); Monocytes Absolute Auto 0.7 K/mm3 (0.1-0.6); Monocytes Percent Auto 11.4 % (2.6-8.5); Neutrophils Absolute Auto 3.6 K/mm3 (1.3-6.7); Neutrophils Percent Auto 60.7 % (45.5-73.1); Platelet Count Result 281 k/mm3 (150-375); Red Blood Count 4.51 M/mm3 (4.2-5.4); Red Cell Distribution Width 12.6 % (11.5-14.5); White Blood Count 5.9 K/mm3 (4.5-10.0)
[2021-12-12 10:05] LABS: Free T4 Free Thyroxine 0.79 ng/mL (0.78-2.19)
[2021-12-12 10:50] LABS: Alanine Aminotransferase 16 U/L (4-35); Albumin Level 4.6 g/dL (3.5-5.1); Alkaline Phosphatase 91 U/L (38-126); Anion Gap 7 mmol/L (8-16); Aspartate Amino Transferase 26 U/L (14-36); Bilirubin,Total 0.6 mg/dL (0.2-1.3); Blood Urea Nitrogen 15 mg/dL (7-17); Calcium 9.8 mg/dL (8.4-10.2); Carbon Dioxide 25 mmol/L (22-30); Chloride 104 mmol/L (98-107); Cholesterol 187 mg/dL (0-200); Estimated Glomerular Filt Rate 54; Glucose 99 mg/dL (65-110); HDL Direct 64 mg/dL; Potassium 4.7 mmol/L (3.4-5.0); Sodium 136 mmol/L (137-145); Triglycerides 56 mg/dL (<150)
[2021-12-12 11:00] LABS: LDL Cholesterol Direct 91 mg/dL
[2021-12-12 11:20] LABS: Total Triiodothyronine (T3) 1.94 NG/ML (0.97-1.69)
== END 2021-12-12 08:47 | disposition home or self-care (01) ==
PROVIDERS: PCP Internal Medicine; Visit Provider Internal Medicine Cardiovascular Disease
DX: R10.9 Unspecified abdominal pain (principal); R53.83 Other fatigue; R00.2 Palpitations; I10 Essential (primary) hypertension; R06.02 Shortness of breath; R07.9 Chest pain, unspecified
CPT/HCPCS: 36415; 80053; 80061; 83036; 84439; 84443; 84480; 85025

== ENCOUNTER 2022-03-25 08:59 | Outpatient (CLI) | payer OTHER, SELFPAY ==
[2022-03-25 09:55] LABS: Hemoglobin A1C 5.1 % (<5.7)
[2022-03-25 11:12] LABS: Free T4 Free Thyroxine 0.91 ng/mL (0.78-2.19)
[2022-03-25 12:26] LABS: Beta HCG Quantitative < 2.39 mIU/ML
[2022-03-27 16:39] LABS: Insulin Level Total 12.9 uIU/mL (<=19.6); Prolactin 7.8 ng/mL (***)
[2022-03-28 15:19] LABS: DHEA-Sulfate 66 mcg/dL (19-231)
[2022-03-29 09:42] LABS: Testosterone Free 1.4 pg/mL (0.1-6.4); Testosterone Total 17 ng/dL (2-45)
== END 2022-03-25 09:00 | disposition home or self-care (01) ==
LOC: ANHLAB 09:02
PROVIDERS: PCP Internal Medicine; Visit Provider Nurse Practitioner
DX: N92.6 Irregular menstruation, unspecified (principal)
CPT/HCPCS: 36415; 82627; 83036; 83498; 83525; 84146; 84402; 84403; 84439; 84443; 84702

== ENCOUNTER 2022-06-17 11:28 | Emergency (ER) | payer OTHER, SELFPAY ==
[2022-06-17] VITALS (14 sets, daily range): BP systolic 142–154; BP diastolic 93–101; PULSE 65–85; RESP 11–22; TEMP 37.4; O2SAT 95–98
--- NOTE | ~2022-06-17 | CT_ITS ---
EXAMINATION: CT brain wo con DATE: 06/17/2022 12:04 INDICATION: Left-sided numbness. Tingling of the right side of the body. TECHNIQUE: Computed tomography (CT) of the head was performed without intravenous contrast. The mA wa s adjusted according to patient size. Iterative reconstruction technique was employed. The dose-lengt h product was 529.67 mGy-cm. COMPARISON: Brain MRI 01/02/2021 FINDINGS: There is no acute ischemic infarct or intracranial hemorrhage. There is an extra-axial mass to the right of the dina. The margins of the mass are not well delineated by noncontrast CT, but it may measure approximately 2.2 x 0.7 cm. The ventricles are normal in size. The paranasal sinuses are clear. The orbits are normal. The mastoid air cells are normal. IMPRESSION: 1. Extra-axial mass to the right of the dina with interval decrease in size. The differential diagnos is includes meningioma and trigeminal schwannoma. Reviewed, dictated and finalized at location A. IMPRESSION: 1. Extra-axial mass to the right of the dina with interval decrease in size. Th e differential diagnosis includes meningioma and trigeminal schwannoma.
--- NOTE | 2022-06-17 11:42 | PC.NURSE ---
Pt c/o right sided back of tongue numbness and right sided body tingling. Pushes and pulls equal.
--- NOTE | 2022-06-17 11:53 | ED.WEAKNESS ---
HPI - Weakness General Chief complaint: Neuro Symptoms/Deficit Stated complaint: Neuro Time Seen by Provider: 06/17/22 11:35 History of Present Illness HPI Narrative: This is a 41-year-old female with history of intracranial tumor, followed by neurosurgery and radiation oncology, who presents to the emergency department complaining of left-sided tongue pain (sharp, rated 3/10) and right-sided numbness for the past day. She states she has had similar symptoms previously though transient. She states that this episode has lasted since approximately 8 PM last night. She attempted to contact her neurosurgeon for further recommendations but was advised to be evaluated emergency department. She denies loss of consciousness, weakness, headaches or change/loss of vision/hearing. Related Data Home Medications Medication Instructions Recorded Confirmed No Home Medications 03/11/22 03/11/22 Allergies Allergy/AdvReac Type Severity Reaction Status Date / Time gentamicin Allergy Severe rash, Verified 06/17/22 11:43 short of breath Review of Systems Review of Systems: CONSTITUTIONAL: Denies fever, chills, or sweats. EYES: Denies visual changes, redness, or discharge. ENT: + Tongue pain denies rhinorrhea, congestion, sore throat, or otalgia. CARDIOVASCULAR: Denies chest pain, palpitations, or edema. RESPIRATORY: Denies cough or dyspnea. GASTROINTESTINAL: Denies abdominal pain, nausea, vomiting, or diarrhea. GENITOURINARY: Denies dysuria or hematuria. SKIN: Denies rash or itching. MUSCULOSKELETAL: Denies back pain, joint pain, or myalgia. NEUROLOGIC: + Right-sided numbness Denies headache, dizziness, or weakness. PSYCHIATRIC: Denies anxiety or depression. [facility] Past Medical History Medical History Anxiety GERD (gastroesophageal reflux disease) Trigeminal neuralgia Surgical History Surgical History History of breast biopsy History of cholecystectomy History of dilation and curettage History of laparoscopy History of tonsillectomy Family History Family History Father Acute myocardial infarction, Onset Age: 45 Sibling Thrombosis Grandparent Diabetes mellitus Cerebrovascular accident Mother Hypertension Social History Social History Years smoked: 8 Smoking status: Never smoker Tobacco type: cigarettes Alcohol intake: never Substance use: never Substance use type: does not use Additional living arrangements comments: . Designates , Oumar Rai as surrogate. 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 HEAD: Normocephalic, atraumatic. EYES: PERRLA and EOMI. ENT: Nares clear, no rhinorrhea or epistaxis. Mucous membranes moist. Oropharynx without tonsillar hypertrophy exudate or other lesions. NECK: Supple. No adenopathy or masses. No carotid bruits or JVD CHEST: Clear to auscultation. No respiratory distress. No wheezes rales or rhonchi HEART: Regular rate and rhythm. No murmur heard. Normal peripheral pulses. ABDOMEN: Soft, nontender, nondistended, normal active bowel sounds. EXTREMITIES: Normal range of motion. No edema. SKIN: Warm, dry, no rash. NEURO: No focal deficits. Alert and oriented x3. Strength 5 5 in all extremities, sensation intact in all extremities, no noted ataxia or nystagmus, cranial nerves II through XII intact PSYCH: Normal mood and affect. Course Course Emergency Course: 12:20 - CT is not concerning for intracranial hemorrhage or edema. Per radiology the mass appears to have decreased in size. 12:54 - Discussed patient with Dr. Napier
--- NOTE | 2022-06-17 13:53 | PC.NURSE ---
Spoke with Dr Tovar and will be updating pt on POC.
--- NOTE | 2022-06-17 15:27 | PC.NURSE ---
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 This RN brought disc to this pt in her office. Pt states, Why do I need a disc. Also prior to pt leaving the ED was making comments regarded high blood pressure. Pt reported has never had high blood pressure and should of been addressed. Noted when dropping of disc pt consuming pizza and soda without concerns.
== END 2022-06-17 15:19 | disposition home or self-care (01) ==
PROVIDERS: Emergency Provider Preventive Medicine Aerospace Medicine; PCP Internal Medicine
DX: R20.0 Anesthesia of skin (principal); K14.6 Glossodynia; G93.89 Other specified disorders of brain; K21.9 Gastro-esophageal reflux disease without esophagitis; Z87.891 Personal history of nicotine dependence
CPT/HCPCS: 70450; 99284

== ENCOUNTER 2022-08-21 07:41 | Outpatient (CLI) | payer OTHER, SELFPAY ==
[2022-08-21 09:47] LABS: Free T4 Free Thyroxine 0.73 ng/mL (0.78-2.19)
[2022-08-23 04:29] LABS: Thyroid Peroxidase Antibodies <1 IU/mL (<9)
[2022-08-25 13:15] LABS: FSH 5.4 mIU/mL (***); LH 2.7 mIU/mL (***); Progesterone 30.1 ng/mL (***); Triiodothyronine T3 Free 3.2 pg/mL (2.3-4.2)
[2022-08-28 21:26] LABS: Estradiol, Ultrasensitive 175 pg/mL
== END 2022-08-21 07:42 | disposition home or self-care (01) ==
LOC: ANHLAB 07:44
PROVIDERS: PCP Internal Medicine; Visit Provider Nurse Practitioner
DX: N92.6 Irregular menstruation, unspecified (principal); R53.83 Other fatigue
CPT/HCPCS: 36415; 82670; 83001; 83002; 84144; 84439; 84443; 84481; 86376

== ENCOUNTER 2022-10-23 07:48 | Outpatient (CLI) | payer OTHER, SELFPAY ==
[2022-10-23 09:17] LABS: Hemoglobin A1C 5.3 % (<5.7)
[2022-10-23 09:25] LABS: Alanine Aminotransferase 18 U/L (6-35); Albumin Level 4.5 g/dL (3.5-5.1); Alkaline Phosphatase 88 U/L (38-126); Anion Gap 10 mmol/L (8-16); Aspartate Amino Transferase 25 U/L (14-36); Bilirubin,Total 0.7 mg/dL (0.2-1.3); Blood Urea Nitrogen 12 mg/dL (7-17); Calcium 8.9 mg/dL (8.4-10.2); Carbon Dioxide 26 mmol/L (22-30); Chloride 106 mmol/L (98-107); Estimated Glomerular Filt Rate > 60; Glucose 96 mg/dL (65-110); Potassium 4.2 mmol/L (3.4-5.0); Sodium 142 mmol/L (137-145)
[2022-10-23 09:37] LABS: Free T4 Free Thyroxine 1.07 ng/mL (0.78-2.19)
[2022-10-26 14:39] LABS: Insulin Level Total 12.4 uIU/mL (<=19.6)
== END 2022-10-23 07:49 | disposition home or self-care (01) ==
LOC: ANHLAB 07:50
PROVIDERS: PCP Internal Medicine; Visit Provider Nurse Practitioner
DX: E03.9 Hypothyroidism, unspecified (principal); R73.01 Impaired fasting glucose
CPT/HCPCS: 36415; 80053; 83036; 83525; 84439; 84443; 84481

== ENCOUNTER 2022-10-24 11:57 | Emergency (ER) | payer OTHER, SELFPAY ==
--- NOTE | ~2022-10-24 | XR_ITS ---
Clinical Indication: Shortness of breath, chest pain PA and lateral views of the chest: Comparison: 10/01/2020 Findings: The lungs are clear, without evidence of focal consolidation or pleural effusion. Cardiome diastinal silhouette is within normal limits. Bones and soft tissues are unremarkable. Impression: Normal chest. Reviewed, dictated and finalized at location . 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
[2022-10-24 12:07] VITALS: BP 149/107; PULSE 81; RESP 18; TEMP 37.1; O2SAT 100
--- NOTE | 2022-10-24 12:12 | ECG_ITS ---
Measurements Intervals Blessing Rate: 65 P: 55 WA: 131 QRS: 51 QRSD: 86 T: 32 QT: 369 QTc: 385 Interpretive Statements SINUS RHYTHM NORMAL ELECTROCARDIOGRAM COMPARED TO ECG 10/01/2020 08:33:50 NO SIGNIFICANT CHANGES Electronically Signed On 10-24-2022 15:00:39 [employer] by Jame Cho M.D.
[2022-10-24 12:26] LABS: Basophils Percent Auto 0.6 % (0.2-1.2); Eosinophils Absolute Auto 0.2 K/mm3 (0-0.3); Eosinophils Percent Auto 2.5 % (0-4.4); Hematocrit 43.1 % (37.0-47.0); Hemoglobin 14.1 g/dL (12.0-15.0); Immature Granulocyte Absolute 0.02 K/mm3 (0.00-0.031); Immature Granulocyte Percent A 0.3 % (0-0.5); Lymphocytes Absolute Auto 1.66 K/mm3 (0.9-3.2); Lymphocytes Percent Auto 26.3 % (18.3-44.2); Mean Corpuscular HGB Conc 32.7 g/dl (32-36); Mean Corpuscular Hemoglobin 31.2 pg (26-34); Mean Corpuscular Volume 95.4 fl (80-100); Monocytes Absolute Auto 0.7 K/mm3 (0.1-0.6); Monocytes Percent Auto 11.1 % (2.6-8.5); Neutrophils Absolute Auto 3.7 K/mm3 (1.3-6.7); Neutrophils Percent Auto 59.2 % (45.5-73.1); Platelet Count Result 294 k/mm3 (150-375); Red Blood Count 4.52 M/mm3 (4.2-5.4); Red Cell Distribution Width 13.2 % (11.5-14.5); White Blood Count 6.3 K/mm3 (4.5-10.0)
[2022-10-24 12:34] LABS: Alanine Aminotransferase 18 U/L (6-35); Albumin Level 4.6 g/dL (3.5-5.1); Alkaline Phosphatase 92 U/L (38-126); Anion Gap 7 mmol/L (8-16); Aspartate Amino Transferase 24 U/L (14-36); Bilirubin,Total 0.8 mg/dL (0.2-1.3); Blood Urea Nitrogen 15 mg/dL (7-17); Calcium 9.2 mg/dL (8.4-10.2); Carbon Dioxide 27 mmol/L (22-30); Chloride 106 mmol/L (98-107); Estimated CRCL calculation 69 ml/min; Estimated Glomerular Filt Rate > 60; Glucose 94 mg/dL (65-110); INR 1.1; Lipase 109 U/L (23-300); Potassium 4.3 mmol/L (3.4-5.0); Prothrombin Time 13.6 Seconds (11.1-14.7); Sodium 140 mmol/L (137-145)
[2022-10-24 12:35] LABS: Partial Thromboplastin Time 27.1 SECONDS (22.3-36.8)
[2022-10-24 12:46] LABS: Troponin I < 0.012 ng/mL (0.000-0.034)
[2022-10-24 12:58] LABS: Influenza A QL RT-PCR Negative (Negative); Influenza B QL RT-PCR Negative (Negative); RSV RNA, RT-PCR Negative (Negative); SARS-CoV-2 RNA PCR Negative
[2022-10-24 13:16] LABS: D Dimer 0.49 ug/mL (<0.48)
--- NOTE | 2022-10-24 13:33 | ED.CHESTPAIN ---
HPI - Chest Pain General Chief Complaint: Chest Pain Stated Complaint: Chest pain Time Seen by Provider: 10/24/22 12:23 Source: patient Mode of arrival: ambulatory Limitations: no limitations History of Present Illness HPI narrative: 42-year-old with a history of hypothyroidism s/p radiation treatment for malignant neoplasm of the brain here with complaints of chest pain and shortness of breath for past 2 weeks. Patient states that she gets exhausted and short winded when she walks for or walks for long period of time. She denies any previous history of coronary artery disease. Onset: during exertion Pain location: substernal Pain radiation: left arm and neck Quality: aching Relieving factors: nothing Exacerbating factors: nothing Related Data Home Medications Medication Instructions Recorded Confirmed No Home Medications 03/11/22 03/11/22 Allergies Allergy/AdvReac Type Severity Reaction Status Date / Time gentamicin Allergy Severe rash, Verified 06/17/22 11:43 short of breath Review of Systems Review of Systems: All systems reviewed & are unremarkable except as noted in HPI and below Constitutional: Constitutional: Reports no additional constitutional complaints Eyes: Eyes: Reports no additional eye complaints ENT: Reports system reviewed and no additional complaints, except as documented Cardiovascular: Cardiovascular: Reports no additional cardiovascular complaints Respiratory: Respiratory: Reports no additional respiratory complaints Gastrointestinal: Gastrointestinal: Reports no additional gastrointestinal complaints Genitourinary: Genitourinary: Reports no additional female genitourinary complaints Musculoskeletal: Musculoskeletal: Reports no additional musculoskeletal complaints [facility] Past Medical History Medical History Anxiety GERD (gastroesophageal reflux disease) Trigeminal neuralgia Surgical History Surgical History History of breast biopsy History of cholecystectomy History of dilation and curettage History of laparoscopy History of tonsillectomy Family History Family History Father Acute myocardial infarction, Onset Age: 45 Sibling Thrombosis Grandparent Diabetes mellitus Cerebrovascular accident Mother Hypertension Social History Social History Years smoked: 8 Smoking status: Never smoker Tobacco type: cigarettes Alcohol intake: never Substance use: never Substance use type: does not use Additional living arrangements comments: . Designates , Oumar Rai as surrogate. 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 HEAD: Normocephalic, atraumatic. EYES: PERRLA and EOMI. NECK: Supple. CHEST: Clear to auscultation. No respiratory distress. HEART: Regular rate and rhythm. No murmur heard. Normal peripheral pulses. ABDOMEN: Soft, nontender, nondistended, normal active bowel sounds. EXTREMITIES: Normal range of motion. No edema. SKIN: Warm, dry, no rash. NEURO: No focal deficits. Alert and oriented x3. PSYCH: Normal mood and affect. Course Course Emergency Course: 42-year-old brought in with chest pain which has been ongoing for last 2 weeks associated with some shortness of breath with exertion. Her pain is mostly midsternal at times radiating to her back. 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 Of late she has been quite stressed out with her work. EKG was sinus rhythm no significant ST-T changes. Her lab work was normal including D-dimer and chest x-ray Vital Signs Vital signs: Vital Signs
[2022-10-24 13:45] VITALS: BP 130/97
== END 2022-10-24 13:45 | disposition home or self-care (01) ==
PROVIDERS: Emergency Medicine; Emergency Provider Family Medicine; PCP Internal Medicine
DX: R07.89 Other chest pain (principal); Z20.822 Contact with and (suspected) exposure to COVID-19; E03.9 Hypothyroidism, unspecified; Z85.841 Personal history of malignant neoplasm of brain; Z87.891 Personal history of nicotine dependence; Z92.3 Personal history of irradiation
CPT/HCPCS: 36415; 71046; 80053; 83690; 84484; 85025; 85380; 85610; 85730; 87637; 93005; 99284

== ENCOUNTER 2023-03-20 08:00 | Outpatient (CLI) | payer OTHER, SELFPAY ==
[2023-03-20 09:19] LABS: Hemoglobin A1C 5.1 % (<5.7)
[2023-03-20 09:23] LABS: Alanine Aminotransferase 24 U/L (6-35); Albumin Level 4.4 g/dL (3.5-5.1); Alkaline Phosphatase 113 U/L (38-126); Anion Gap 7 mmol/L (8-16); Aspartate Amino Transferase 25 U/L (14-36); Bilirubin,Total 0.7 mg/dL (0.2-1.3); Blood Urea Nitrogen 14 mg/dL (7-17); Calcium 9.2 mg/dL (8.4-10.2); Carbon Dioxide 29 mmol/L (22-30); Chloride 102 mmol/L (98-107); Estimated Glomerular Filt Rate > 60; Glucose 94 mg/dL (65-110); Potassium 4.2 mmol/L (3.4-5.0); Sodium 138 mmol/L (137-145)
[2023-03-20 09:55] LABS: Thyroid Stimulating Hormone 0.636 uIU/mL (0.465-4.680)
[2023-03-20 10:05] LABS: Free T4 Free Thyroxine 1.04 ng/mL (0.78-2.19)
[2023-03-25 21:17] LABS: Triiodothyronine T3 Free 2.9 pg/mL (2.3-4.2)
[2023-03-26 19:33] LABS: Insulin Level Total 10.4 uIU/mL (<=19.6)
== END 2023-03-20 08:01 | disposition home or self-care (01) ==
PROVIDERS: PCP Internal Medicine; Visit Provider Internal Medicine Endocrinology, Diabetes & Metabolism
DX: R73.01 Impaired fasting glucose (principal); E03.9 Hypothyroidism, unspecified; M25.462 Effusion, left knee; M25.562 Pain in left knee
CPT/HCPCS: 36415; 80053; 82495; 83036; 83525; 84439; 84443; 84481

== ENCOUNTER 2023-05-06 07:54 | Outpatient (CLI) | payer OTHER, SELFPAY ==
[2023-05-06 08:33] LABS: Alanine Aminotransferase 19 U/L (6-35); Albumin Level 4.1 g/dL (3.5-5.1); Alkaline Phosphatase 96 U/L (38-126); Anion Gap 5 mmol/L (8-16); Aspartate Amino Transferase 20 U/L (14-36); Bilirubin,Total 0.6 mg/dL (0.2-1.3); Blood Urea Nitrogen 12 mg/dL (7-17); Calcium 8.9 mg/dL (8.4-10.2); Carbon Dioxide 26 mmol/L (22-30); Chloride 106 mmol/L (98-107); Estimated Glomerular Filt Rate > 60; Glucose 92 mg/dL (65-110); Potassium 3.9 mmol/L (3.4-5.0); Sodium 137 mmol/L (137-145)
[2023-05-06 08:54] LABS: Free T4 Free Thyroxine 1.06 ng/mL (0.78-2.19)
[2023-05-06 09:04] LABS: Thyroid Stimulating Hormone 0.492 uIU/mL (0.465-4.680)
[2023-05-09 05:59] LABS: FSH 6.7 mIU/mL (***); Progesterone 12.1 ng/mL (***); Prolactin 14.5 ng/mL (***); Triiodothyronine T3 Free 3.3 pg/mL (2.3-4.2)
[2023-05-09 12:03] LABS: DHEA-Sulfate 78 mcg/dL (19-231); Insulin Level Total 13.4 uIU/mL (<=19.6)
[2023-05-10 14:51] LABS: Testosterone Free 2.6 pg/mL (0.1-6.4); Testosterone Total 27 ng/dL (2-45)
[2023-05-15 00:12] LABS: Estradiol, Ultrasensitive 137 pg/mL
== END 2023-05-06 07:55 | disposition home or self-care (01) ==
LOC: ANHLAB 07:56
PROVIDERS: PCP Internal Medicine; Visit Provider Internal Medicine Endocrinology, Diabetes & Metabolism
DX: E03.9 Hypothyroidism, unspecified (principal); N92.6 Irregular menstruation, unspecified
CPT/HCPCS: 36415; 80053; 82627; 82670; 83001; 83002; 83525; 84144; 84146; 84402; 84403; 84439; 84443; 84481

== ENCOUNTER 2023-09-04 06:51 | Outpatient (CLI) | payer OTHER, SELFPAY ==
[2023-09-04 08:11] LABS: Free T4 Free Thyroxine 1.23 ng/mL (0.78-2.19)
[2023-09-04 08:21] LABS: Thyroid Stimulating Hormone 0.493 uIU/mL (0.465-4.680)
== END 2023-09-04 06:52 | disposition home or self-care (01) ==
PROVIDERS: PCP Internal Medicine
DX: E03.9 Hypothyroidism, unspecified (principal)
CPT/HCPCS: 36415; 84439; 84443

== ENCOUNTER 2024-06-15 07:50 | Outpatient (CLI) | payer OTHER, SELFPAY ==
[2024-06-15 08:16] LABS: Basophils Absolute Auto 0.1 K/mm3 (0.0-0.1); Basophils Percent Auto 0.9 % (0.2-1.2); Eosinophils Absolute Auto 0.4 K/mm3 (0-0.3); Eosinophils Percent Auto 6.5 % (0-4.4); Hematocrit 41.3 % (37.0-47.0); Hemoglobin 13.1 g/dL (12.0-15.0); Immature Granulocyte Absolute 0.02 K/mm3 (0.00-0.031); Immature Granulocyte Percent A 0.4 % (0-0.5); Lymphocytes Absolute Auto 1.36 K/mm3 (0.9-3.2); Lymphocytes Percent Auto 25.1 % (18.3-44.2); Mean Corpuscular HGB Conc 31.7 g/dl (32-36); Mean Corpuscular Hemoglobin 29.8 pg (26-34); Mean Corpuscular Volume 94.1 fl (80-100); Mean Platelet Volume 10.4 fl (7.4-10.4); Monocytes Absolute Auto 0.6 K/mm3 (0.1-0.6); Monocytes Percent Auto 11.4 % (2.6-8.5); Neutrophils Percent Auto 55.7 % (45.5-73.1); Platelet Count Result 277 k/mm3 (150-375); Red Blood Count 4.39 M/mm3 (4.2-5.4); Red Cell Distribution Width 13.1 % (11.5-14.5); White Blood Count 5.4 K/mm3 (4.5-10.0)
[2024-06-15 08:44] LABS: Anion Gap 11 mmol/L (4-12); Blood Urea Nitrogen 14 mg/dL (7-17); Calcium 9.2 mg/dL (8.4-10.2); Carbon Dioxide 24 mmol/L (22-30); Chloride 105 mmol/L (98-107); Cholesterol 160 mg/dL (0-200); Estimated Glomerular Filt Rate 60; Glucose 90 mg/dL (65-110); HDL Direct 53 mg/dL; Potassium 4.2 mmol/L (3.4-5.0); Sodium 140 mmol/L (137-145); Triglycerides 59 mg/dL (<150)
[2024-06-15 08:56] LABS: LDL Cholesterol Direct 74 mg/dL
[2024-06-15 09:18] LABS: Free T4 Free Thyroxine 1.08 ng/mL (0.78-2.19)
== END 2024-06-15 07:51 | disposition home or self-care (01) ==
LOC: ANHLAB 07:52
PROVIDERS: PCP Nurse Practitioner Family; Visit Provider Nurse Practitioner Family
DX: E66.9 Obesity, unspecified (principal); K21.9 Gastro-esophageal reflux disease without esophagitis; E03.9 Hypothyroidism, unspecified
CPT/HCPCS: 36415; 80048; 80061; 84439; 84443; 85025

== ENCOUNTER 2024-08-30 14:00 | Outpatient (CLI) | payer OTHER, SELFPAY ==
--- NOTE | ~2024-08-30 | US_ITS ---
Pelvic ultrasound. Clinical History: Menorrhagia Technique: Realtime transabdominal and transvaginal scanning of the pelvis was performed. Color flow Doppler and Doppler spectral analysis were performed. Findings: The uterus is anteverted. The endometrial stripe has a thickness of 11 mm. No focal mass i s identified. The right ovary is not visualized. No significant right ovarian or adnexal mass is seen. The left ovary measures 4.6 x 6.2 x 2.9 cm. Possible left ovarian cyst measuring 3.2 cm in diameter. Possible second ovarian cyst measuring 2.8 cm in diameter. There is no evidence of free fluid in the cul de sac. Impression: 2 possible left ovarian cysts, measuring 3.2 cm and 2.8 cm in size respectively. Unremarkable uterus. Right ovary not seen. Reviewed, dictated and finalized at [facility]. 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 Unremarkable uterus. Right ovary not seen.
== END 2024-08-30 14:01 | disposition home or self-care (01) ==
LOC: GOSHIMG 14:01
PROVIDERS: PCP Nurse Practitioner; Visit Provider Nurse Practitioner
DX: N92.0 Excessive and frequent menstruation with regular cycle (principal)
CPT/HCPCS: 76830; 76856

== ENCOUNTER 2024-11-22 08:05 | Outpatient (CLI) | payer OTHER, SELFPAY ==
--- OUTSIDE RECORDS SUMMARY | 2024-11-22 08:14 | XMS_ITS | Referral Summary ---
Author Organization [facility] Address [address] [place] [address] Care Team Providers Care Certified Control Systems Technician Name Role Phone Chay Olvera MD Primary Care Provider [phone] Shelly Jay MD Unavailable Nayla Deleon PhD Unavailable [phone] Tye Winston MD Unavailable [phone] Encounters Date Type Department Care Team Description 09/15/2024 Telephone [facility] Neurosurgery [facility] Floor 1, [address] [place] [address] Shakila Lin NP 09/15/2024 Telephone [facility] Neurosurgery [address] [place] [address] Floor 1, [address] [place] [address] Shakila Lin NP 09/15/2024 3:00 PM HISTORIC INTERPRETER Office Visit [facility] Neurosurgery [address] [place] [address] Floor 1, [address] [place] [address] Shakila Lin NP Meningioma (HCC) (Primary Dx) 09/15/2024 12:12 PM HISTORIC INTERPRETER - 09/15/2024 11:59 PM HISTORIC INTERPRETER Hospital Encounter [facility] [address] [place] [address] Meningioma (HCC) Discharge Disposition: Discharge to home or self care from Last 3 Months Allergies Active Allergy Reactions Criticality Noted Date Comments Doxycycline Nausea & Vomiting,Other (See comments) Low 09/03/2022 Gadolinium-Containing Contrast Media Palpitations Low 09/15/2024 Tachycardia, throat scratchy Gentamicin Rash Medium 09/15/2011 Medications Unithroid 75 mcg tablet TAKE 1 TABLET BY MOUTH EARLY IN THE MORNING BEFORE BREAKFAST 90 tablet 4 Active Active Problems Problem Noted Date Diagnosed Date Other chest pain 10/30/2022 Hypothyroidism 09/11/2022 Impaired fasting glucose 09/11/2022 Obesity 09/11/2022 Cellulitis 09/04/2022 Biliary dyskinesia 09/04/2022 Gastroesophageal reflux disease 09/04/2022 Irritable bowel syndrome 09/04/2022 Malaise and fatigue 09/04/2022 Sinusitis 09/04/2022 Toothache 09/04/2022 Vitamin D deficiency 09/04/2022 Irregular periods 08/04/2022 Acute right ankle pain 02/28/2021 Assessment & Plan (02/28/2021 3:55 PM CDT): Xray today given persistent swelling and ecchymosis Continue compression brace, elevation, ice and rest STOP boot PT referral, reviewed some simple exercises with patient today that she can start pending eval. If not improving would consider referral to Dr. Lester Alcazar for further eval Brain tumor consultation 01/08/2021 Meningioma 01/08/2021 Cervical radiculopathy 12/28/2020 Assessment & Plan (12/28/2020 10:00 AM HISTORIC INTERPRETER): Plan is to do MRI of the cervical spine. Should this be negative then may want to proceed with brain MRI as previously scheduled Cranial neuropathy 08/31/2020 Assessment & Plan (08/31/2020 9:04 AM HISTORIC INTERPRETER): MRI with and without contrast Abdominal pain 09/13/2019 Abnormal mammogram 06/07/2019 Pain of finger 07/10/2017 Fatigue 12/16/2016 Palpitations 12/16/2016 Actinic keratosis 07/04/2016 Benign neoplasm of soft tissues 07/04/2016 Primary hypertension 09/18/2015 Shortness of breath 11/15/2013 Immunizations Name Administration Dates Next Due Influenza, Trivalent, High D ose, Split, Preservative Free, Intramuscular 07/27/2013 Social History Tobacco Use Types Packs/Day Years Used Date Smoking Tobacco: Former Cigarettes Q uit: 2006 Smokeless Tobacco: Never Tobacco Cessation:Counseling Given: Not Answered AUDIT-C Answer Date Recorded Q1: How often do you have a drink containing alcohol? Never 09/04/2022 Q2: How many drinks containi ng alcohol do you have on a typical day when you are drinking? Patient does not drink Q3: How often do you have si x or more drinks on one occasion? Never 09/04/2022 Comments No Sex and Gender Information Value Date Recorded Sex Assigned at Not on file Legal Sex Female 6:16 AM HISTORIC INTERPRETER Gender Identity Female 08/28/2022 11:46 AM CDT Sexual Orientation Straight 08/28/2022 11 :46 AM CDT Last Filed Vital Signs Vital Sign Reading Time Taken Comments Blood Pressure 126/86 09/15/2024 2:37 PM HISTORIC INTERPRETER Pulse 68 09/15/2024 2:37 PM HISTORIC INTERPRETER Temperature - - Respiratory Rate 18 09/15/2024 2:37 PM HISTORIC INTERPRETER Oxygen Saturation 100% 09/15/2024 2:37 PM HISTORIC INTERPRETER Inhaled Oxygen Concentration - - Weight 72.8 kg (160 lb 6.4 oz) 09/15/2024 2:37 P M HISTORIC INTERPRETER Height 162.6 cm (5' 4 ) 09/15/2024 2:37 PM HISTORIC INTERPRETER Body Mass Index 27.53 09/15/2024 2:37 PM HISTORIC INTERPRETER Plan of Treatment Not on file Procedures Procedure Name Priority Date/Time Associated Diagnosis Comments MRI BRAIN W WO CONTRAST Schedule Routine, Read Routine (OP Routine) 09/15/2024 1:31 PM HISTORIC INTERPRETER Meningioma (HCC) SCREENING MAMMOGRAM BILATERAL W GUZMAN Schedule Routine, Read Routine (OP Routine) 10/30/2023 9:26 AM HISTORIC INTERPRETER Screening mammogram, encounter for from Last 3 Months or Most Recently Relevant to Health Maintenance Results * MRI Brain W WO Contrast (09/15/2024 1:31 PM HISTORIC INTERPRETER) Anatomical Region Laterality Modality Head and Neck N/A Magnetic Resonan ce 09/15/2024 4:06 PM HISTORIC INTERPRETER Impressions 09/15/2024 6:42 PM HISTORIC INTERPRETER Grossly unchanged size of enhancing lesion in the right Meckel cave and prepontine cistern region. Dictated by: Linda Atkinson M.D. The radiology attending physician has personally reviewed this study, and had reviewed and/or edited this written report and agrees with it. 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 Contrast information: 16 mL Gadoterate Meglumine COMPARISON: 09/03/2023 MR, 09/03/2022 MR, 09/04/2021 MR FINDINGS: There is a redemonstrated lesion in the right Meckel cave with extension into the right prepontine cistern with enhancement and restricted diffusion that is isointense to hypointense on T1 and T2. This now measures 11mm x 11mm on axial, which is grossly unchanged in size from prior imaging in 2022. The scalp and calvarium are normal. The superior sagittal sinus demonstrates normal venous flow. The corpus callosum is normal in shape and signal intensity. The posterior fossa is unremarkable. The pituitary and sella are normal. The brainstem and craniocervical junction are unremarkable. Diffusion weighted images reveal no hyperintensities to suggest acute cerebral infarction. The susceptibility weighted sequences reveal no evidence of acute or chronic hemorrhage. The ventricles are normal in size and position without evidence of hydrocephalus. The paranasal sinuses are normal. The visualized portions of the mastoids are unremarkable. The orbits appear normal. Normal flow voids are demonstrated in the carotid arteries and basilar artery. There is no abnormal contrast enhancement. 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 Contrast information: 16 mL Gadoterate Meglumine COMPARISON: 09/03/2023 MR, 09/03/2022 MR, 09/04/2021 MR FINDINGS: There is a redemonstrated lesion in the right Meckel cave with extension into the right prepontine cistern with enhancement and restricted diffusion that is isointense to hypointense on T1 and T2. This now measures 11mm x 11mm on axial, which is grossly unchanged in size from prior imaging in 2022. The scalp and calvarium are normal. The superior sagittal sinus demonstrates normal venous flow. The corpus callosum is normal in shape and signal intensity. The posterior fossa is unremarkable. The pituitary and sella are normal. The brainstem and craniocervical junction are unremarkable. Diffusion weighted images reveal no hyperintensities to suggest acute cerebral infarction. The susceptibility weighted sequences reveal no evidence of acute or chronic hemorrhage. The ventricles are normal in size and position without evidence of hydrocephalus. The paranasal sinuses are normal. The visualized portions of the mastoids are unremarkable. The orbits appear normal. Normal flow voids are demonstrated in the carotid arteries and basilar artery. There is no abnormal contrast enhancement. IMPRESSION: Grossly unchanged size of enhancing lesion in the right Meckel cave and prepontine cistern region. Dictated by: Linda Atkinson M.D. The radiology attending physician has personally reviewed this study, and had reviewed and/or edited this written report and agrees with it. Electronically signed by: Preet Arango MD, PHD [facility] Natacha Lin [facility] MRI PROCEDURES Final Resul t * Screening Mammogram Bilateral W Guzman (10/30/2023 9:26 AM HISTORIC INTERPRETER) Anatomical Region Laterality Modality Breast Bilateral Mammography Narrative 11/02/2023 1:41 PM HISTORIC INTERPRETER Mammogram Technique: Bilateral Digital Breast Tomosynthesis, Bilateral C-view 2D Screening mammogram. ??Views obtained: ??bilateral craniocaudal and bilateral mediolateral oblique. ??Computer Aided Detection was performed. Mammogram Findings: The present examination has been compared to a prior imaging study performed at [facility] on 10/29/2022. The breasts are extremely dense, which lowers the sensitivity of mammography. There is no suspicious abnormality in either breast. Impression: There is no mammographic evidence of malignancy. Annual screening mammography is recommended. Consider breast MRI for supplemental screening given the patient's extremely dense breast tissue. OVERALL FINAL ASSESSMENT: BI-RADS CATEGORY 1: ??Negative. Procedure Note Katelynn Fang MD - 11/02/2023 Mammogram Technique: Bilateral Digital Breast Tomosynthesis, Bilateral C-view 2D Screening mammogram. Views obtained: bilateral craniocaudal and bilateral mediolateral oblique. Computer Aided Detection was performed. Mammogram Findings: The present examination has been compared to a prior imaging study performed at [facility] on 10/29/2022. The breasts are extremely dense, which lowers the sensitivity of mammography. There is no suspicious abnormality in either breast. Impression: There is no mammographic evidence of malignancy. Annual screening mammography is recommended. Consider breast MRI for supplemental screening given the patient's extremely dense breasttissue. OVERALL FINAL ASSESSMENT: BI-RADS CATEGORY 1: Negative. us Self Screening Mammogram IMG MAMMO PROCEDURES Fi nal Result from Last 3 Months or Most Recently Relevant to Health Maintenance Insurance [facility] Address: [facility] [address] [place] [address] [facility] Address: [address] [address] [place] [address] [facility] Address: [address] [address] [id number] [facility] Address: [address] [address] [place] [address] WORKERS COMPENSATION GENERIC WORKERS COMPENSATION GENERIC Care Teams Certified Control Systems Technician Relationship Specialty Start Date End Date Chay Olvera MD [address] [place] [address] PCP - General 07/20/17 Shelly Jay MD [address] [place] [address] Radiation Oncologist Radiation Oncology 03/12/21 Nayla Deleon, PhD [address] [facility] [address] [place] [address] Nurse Practitioner Radiation Oncology 08/22/21 Tye Winston MD [address] [place] [address] Surgeon Neurosurgery 09/03/22
--- OUTSIDE RECORDS SUMMARY | 2024-11-22 08:14 | XMS_ITS | Clinical Summary ---
Author Organization [facility] Address [address] [place] [address] Care Team Providers Care Lookback Coordinator Name Role Phone Chay Olvera MD Primary Care Provider [phone] Shelly Jay MD Unavailable Nayla Deleon PhD Unavailable [phone] Tye Winston MD Unavailable [phone] Allergies Active Allergy Reactions Criticality Noted Date [...] 12/28/2020 Assessment & Plan (12/28/2020 10:00 AM HOUSEKEEPING ROOM ATTENDANT): Plan is to do MRI of the cervical spine. Should this be negative then may want to proceed with brain MRI as previously scheduled Cranial neuropathy 08/31/2020 Assessment & Plan (08/31/2020 9:04 AM HOUSEKEEPING ROOM ATTENDANT): MRI with and without contrast Abdominal pain 09/13/2019 Abnormal mammogram 06/07/2019 Pain of finger 07/10/2017 Fatigue 12/16/2016 Palpitations 12/16/2016 Actinic keratosis 07/04/2016 Benign neoplasm of soft tissues 07/04/2016 Primary hypertension 09/18/2015 Shortness of breath 11/15/2013 Encounters Date Type Department Care Team Description 09/15/2024 3:00 PM HOUSEKEEPING ROOM ATTENDANT Office Visit [facility] Neurosurgery [facility] Floor 1, [address] [place] [address] Shakila Lin NP Meningioma (HCC) (Primary Dx) 09/15/2024 12:12 PM HOUSEKEEPING ROOM ATTENDANT - 09/15/2024 11:59 PM HOUSEKEEPING ROOM ATTENDANT Hospital Encounter [facility] [address] [place] [address] Meningioma (HCC) Discharge Disposition: Discharge to home or self care 09/15/2024 Telephone [facility] Neurosurgery [facility] Floor 1, [address] [place] [address] Shakila Lin NP 09/15/2024 Telephone [facility] Neurosurgery [address] [place] [address] Floor 1, [address] [place] [address] Shakila Lin NP from Last 3 Months Immunizations Name Administration Dates Next Due Influenza, Trivalent, High D ose, Split, Preservative Free, Intramuscular 07/27/2013 Surgical History Surgery Date Site/Laterality Comments DC CHOLECYSTECTOMY Cholecystectomy - (Added by Conv) DC TONSILLECTOMY PRIMARY/SECONDARY <AGE 12 Tonsillectomy - (Added by TW Conv) TONSILECTOMY, ADENOIDECTOMY, BILATERAL MYRINGOTOMY AND TUBES CHOLECYSTECTOMY BREAST BIOPSY 06/14/2019 Right Medical History Medical History Date Comments Personal history of other di seases of the circulatory system History of hypertension - (A dded by Conv) Gastro-esophageal reflux dis ease without esophagitis Gastric reflux - (Added by T W Conv) Migraine without status migr ainosus, not intractable Migraine - (Added by Conv ) Brain mass Hypertension Family History Medical History Relation Name Comments Bleeding Disorder Cousin Family his tory of bleeding disorder - (Added by Conv) Alcohol abuse Father Family history of alcoholism - (Added by Conv) Heart disease Father Family history of cardiac disorder - (Added by Conv) Stroke Maternal Grandmother Family history of cerebrovascular accident (CVA) - (Added by Conv) Hypertension Mother Family history of hypertension - (Added by TW Conv) Heart disease Paternal Grandfather Family history of cardiac disorder - (Added by TW Conv) Bleeding Disorder Sister Family his tory of bleeding disorder - (Added by Conv) Relation Name Status Comments Cousin Father Maternal Grandmother Mother Paternal Grandfather Sister Social History Tobacco Use Types Packs/Day Years [...] on file Legal Sex Female 6:16 AM HOUSEKEEPING ROOM ATTENDANT Gender Identity Female 08/28/2022 11:46 AM CDT Sexual Orientation Straight 08/28/2022 11 :46 AM CDT Obstetrics History Last Filed Vital Signs Vital Sign Reading Time Taken Comments Blood Pressure 126/86 09/15/2024 2:37 PM HOUSEKEEPING ROOM ATTENDANT Pulse 68 09/15/2024 2:37 PM HOUSEKEEPING ROOM ATTENDANT Temperature - - Respiratory Rate 18 09/15/2024 2:37 PM HOUSEKEEPING ROOM ATTENDANT Oxygen Saturation 100% 09/15/2024 2:37 PM HOUSEKEEPING ROOM ATTENDANT Inhaled Oxygen Concentration - - Weight 72.8 kg (160 lb 6.4 oz) 09/15/2024 2:37 P M HOUSEKEEPING ROOM ATTENDANT Height 162.6 cm (5' 4 ) 09/15/2024 2:37 PM HOUSEKEEPING ROOM ATTENDANT Body Mass Index 27.53 09/15/2024 2:37 PM HOUSEKEEPING ROOM ATTENDANT Plan of Treatment Health Maintenance Due Date Last Done Comments Cervical Cancer Screening 1979 Colon Cancer Screening-Colonoscopy 1979 Depression Screening 1979 Hepatitis C Screening 1979 DTaP/Tdap/Td Vaccine (1 - Tdap) 1990 Hepatitis B Screening 1997 Covid-19 Vaccine (4 2023-2 5 season) 2024 10/29/2021, 11/20/2020, 10/30/2020 Regular Well Visit/Exam 18-64 07/24/2024 07/24/2023 Breast Cancer Screening-Mammogram 10/30/2024 10/30/2023, 10/29/2022 Influenza Vaccine Completed 09/09/2024, 07/27/2013 HPV Vaccines Aged Out No longer eligi ble based on patient's age to complete this topic Pneumococcal vaccine <65 Aged Out No longer eligible based on patient's age to complete this topic Procedures Procedure Name Priority Date/Time Associated Diagnosis Comments MRI BRAIN W WO CONTRAST Schedule Routine, Read Routine (OP Routine) 09/15/2024 1:31 PM HOUSEKEEPING ROOM ATTENDANT Meningioma (HCC) SCREENING MAMMOGRAM BILATERAL W GUZMAN Schedule Routine, Read Routine (OP Routine) 10/30/2023 9:26 AM HOUSEKEEPING ROOM ATTENDANT Screening mammogram, encounter for from Last 3 Months or Most Recently Relevant to Health Maintenance Results * MRI Brain W WO Contrast (09/15/2024 1:31 PM HOUSEKEEPING ROOM ATTENDANT) Anatomical Region Laterality Modality Head and Neck N/A Magnetic Resonan ce 09/15/2024 4:06 PM HOUSEKEEPING ROOM ATTENDANT Impressions 09/15/2024 6:42 PM HOUSEKEEPING ROOM ATTENDANT Grossly unchanged size of enhancing lesion in the right Meckel cave and prepontine cistern region. Dictated by: Linda Atkinson M.D. The radiology attending physician has personally reviewed this study, and had reviewed and/or edited this written report and agrees with it. Electronically signed by: rPeet Arango MD, PHD Narrative 09/15/2024 6:42 PM HOUSEKEEPING ROOM ATTENDANT EXAMINATION: Magnetic resonance imaging (MRI) of the [...] Electronically signed by: Preet Arango MD, PHD Shakila Lin NP IMG MRI PROCEDURES Final Resul t * Screening Mammogram Bilateral W Guzman (10/30/2023 9:26 AM HOUSEKEEPING ROOM ATTENDANT) Anatomical Region Laterality Modality Breast Bilateral Mammography Narrative 11/02/2023 1:41 PM HOUSEKEEPING ROOM ATTENDANT Mammogram Technique: Bilateral Digital Breast Tomosynthesis, Bilateral C-view 2D Screening mammogram. ??Views obtained: ??bilateral craniocaudal and bilateral mediolateral oblique. ??Computer Aided Detection was performed. Mammogram Findings: The present examination has been compared to a prior imaging study performed at [facility] on 10/29/2022. The breasts are extremely dense, [...] to a prior imaging study performed at [facility] on 10/29/2022. The breasts are extremely dense, [...] Most Recently Relevant to Health Maintenance Insurance [facility] [id number] WORKERS COMPENSATION GENERIC WORKERS COMPENSATION GENERIC Care Teams Lookback Coordinator Relationship Specialty Start Date End Date Chay Olvera MD [address] [place] [address] PCP - General 07/20/17 Shelly Jay MD [address] [place] [address] Radiation Oncologist Radiation Oncology 03/12/21 Nayla Deleon, PhD [address] [place] [address] Nurse Practitioner Radiation Oncology 08/22/21 Tye Winston MD [address] [place] [address] Surgeon Neurosurgery 09/03/22
[2024-11-22 09:21] LABS: Thyroid Stimulating Hormone Reflex 0.424 uIU/mL (0.465-4.68)
[2024-11-22 10:31] LABS: Free T4 Free Thyroxine Reflex 1.01 ng/dL (0.78-2.19)
[2024-11-22 11:41] LABS: Total Triiodothyronine (T3) 1.98 NG/ML (0.97-1.69)
== END 2024-11-22 08:06 | disposition home or self-care (01) ==
LOC: ANHLAB 08:06
PROVIDERS: PCP Nurse Practitioner; Visit Provider Nurse Practitioner Family
DX: E03.9 Hypothyroidism, unspecified (principal)
CPT/HCPCS: 36415; 84439; 84443; 84480

== ENCOUNTER 2025-01-03 07:57 | Outpatient (CLI) | payer OTHER, SELFPAY ==
--- OUTSIDE RECORDS SUMMARY | 2025-01-03 08:06 | XMS_ITS | Clinical Summary ---
Author Organization [facility] Address [address] [place] [address] Care Team Providers Care Creative Writer Name Role Phone Chay Olvera MD Primary Care Provider [phone] Shelly Jay MD Unavailable Nayla Deleon PhD Unavailable [phone] Tye Winston MD Unavailable [phone] Allergies Active Allergy Reactions Criticality Noted Date [...] 12/28/2020 Assessment & Plan (12/28/2020 10:00 AM ADULT EDUCATION PROFESSIONAL): Plan is to do MRI of the cervical spine. Should this be negative then may want to proceed with brain MRI as previously scheduled Cranial neuropathy 08/31/2020 Assessment & Plan (08/31/2020 9:04 AM ADULT EDUCATION PROFESSIONAL): MRI with and without contrast Abdominal pain 09/13/2019 Abnormal mammogram 06/07/2019 Pain of finger 07/10/2017 Fatigue 12/16/2016 Palpitations 12/16/2016 Actinic keratosis 07/04/2016 Benign neoplasm of soft tissues 07/04/2016 Primary hypertension 09/18/2015 Shortness of breath 11/15/2013 Immunizations Immunization Administration Dates Next Due Influenza, Trivalent, High D ose, Split, Preservative Free, Intramuscular 07/27/2013 Surgical History Surgery Date Site/Laterality Comments [place] CHOLECYSTECTOMY Cholecystectomy - (Added by TW Conv) [place] TONSILLECTOMY PRIMARY/SECONDARY <AGE 12 Tonsillectomy - (Added by TW Conv) TONSILECTOMY, ADENOIDECTOMY, BILATERAL MYRINGOTOMY AND TUBES CHOLECYSTECTOMY BREAST BIOPSY 06/14/2019 Right Medical History Medical History Date Comments Personal history of other di seases of the circulatory system History of hypertension - (A dded by TW Conv) Gastro-esophageal reflux dis ease without esophagitis Gastric reflux - (Added by T W Conv) Migraine without status migr ainosus, not intractable Migraine - (Added by TW Conv ) Brain mass Hypertension Family History Medical History Relation Name Comments Bleeding Disorder Cousin Family his tory of bleeding disorder - (Added by TW Conv) Alcohol abuse Father Family history of alcoholism - (Added by TW Conv) Heart disease Father Family history of cardiac disorder - (Added by TW Conv) Stroke Maternal Grandmother Family history of cerebrovascular accident (CVA) - (Added by TW Conv) Hypertension Mother Family history of hypertension - (Added by TW Conv) Heart disease Paternal Grandfather Family history of cardiac disorder - (Added by TW Conv) Bleeding Disorder Sister Family his tory of bleeding disorder - (Added by TW Conv) Relation Name Status Comments Cousin Father Maternal Grandmother Mother Paternal Grandfather Sister Social History Tobacco Use Types Packs/Day Years Used Date Smoking Tobacco: Former Cigarettes Q uit: 2007 Smokeless Tobacco: Never Tobacco Cessation:Counseling Given: Not [...] on file Legal Sex Female 6:16 AM ADULT EDUCATION PROFESSIONAL Gender Identity Female 08/28/2022 11:46 AM CDT Sexual Orientation Straight 08/28/2022 11 :46 AM CDT Obstetrics History Last Filed Vital Signs Vital Sign Reading Time Taken Comments Blood Pressure 126/86 09/15/2024 2:37 PM ADULT EDUCATION PROFESSIONAL Pulse 68 09/15/2024 2:37 PM ADULT EDUCATION PROFESSIONAL Temperature - - Respiratory Rate 18 09/15/2024 2:37 PM ADULT EDUCATION PROFESSIONAL Oxygen Saturation 100% 09/15/2024 2:37 PM ADULT EDUCATION PROFESSIONAL Inhaled Oxygen Concentration - - Weight 72.8 kg (160 lb 6.4 oz) 09/15/2024 2:37 P M ADULT EDUCATION PROFESSIONAL Height 162.6 cm (5' 4 ) 09/15/2024 2:37 PM ADULT EDUCATION PROFESSIONAL Body Mass Index 27.53 09/15/2024 2:37 PM ADULT EDUCATION PROFESSIONAL Plan of Treatment Health Maintenance Due Date Last Done Comments Cervical Cancer Screening 1979 Colon Cancer Screening-Colonoscopy 1979 Depression Screening 1979 Hepatitis C Screening 1979 DTaP/Tdap/Td Vaccine (1 - Tdap) 1990 Hepatitis B Screening 1997 Covid-19 Vaccine (2023-2 5 season) 2024 10/29/2021, 11/20/2020, 10/30/2020 Regular Well Visit/Exam 18-64 07/24/2024 07/24/2023 Breast Cancer Screening-Mammogram 10/30/2024 10/30/2023, 10/29/2022 Influenza Vaccine Completed 09/09/2024, 07/27/2013 HPV Vaccines Aged Out No longer eligi ble based on patient's age to complete this topic Pneumococcal vaccine <65 Aged Out No longer eligible based on patient's age to complete this topic Procedures Procedure Name Priority Date/Time Associated Diagnosis Comments SCREENING MAMMOGRAM BILATERAL W GUZMAN Schedule Routine, Read Routine (OP Routine) 10/30/2023 9:26 AM ADULT EDUCATION PROFESSIONAL Screening mammogram, encounter for from Last 3 Months or Most Recently Relevant to Health Maintenance Results * Screening Mammogram Bilateral W Guzman (10/30/2023 9:26 AM ADULT EDUCATION PROFESSIONAL) Anatomical Region Laterality Modality Breast Bilateral Mammography Narrative 11/02/2023 1:41 PM ADULT EDUCATION PROFESSIONAL Mammogram Technique: Bilateral Digital Breast Tomosynthesis, Bilateral C-view 2D Screening mammogram. Views obtained: bilateral craniocaudal and bilateral mediolateral oblique. Computer Aided Detection was performed. Mammogram Findings: The present examination has been compared to a prior imaging study performed at [facility] on 10/29/2022. The breasts are extremely dense, which lowers the sensitivity of mammography. There is no suspicious abnormality in either breast. Impression: There is no mammographic evidence of malignancy. Annual screening mammography is recommended. Consider breast MRI for supplemental screening given the patient's extremely dense breast tissue. OVERALL FINAL ASSESSMENT: BI-RADS CATEGORY 1: Negative. Procedure Note Katelynn Fang MD - 11/02/2023 Mammogram Technique: Bilateral Digital Breast Tomosynthesis, Bilateral C-view 2D Screening mammogram. Views obtained: bilateral craniocaudal and bilateral mediolateral oblique. Computer Aided Detection was performed. Mammogram Findings: The present examination has been compared to a prior imaging study performed at [facility] on 10/29/2022. The breasts are extremely [...] Most Recently Relevant to Health Maintenance Insurance WORKERS COMPENSATION GENERIC WORKERS COMPENSATION GENERIC Care Teams Creative Writer Relationship Specialty Start Date End Date Chay Olvera MD [address] [place] [address] PCP - General 07/20/17 Shelly Jay MD [address] [place] [address] Radiation Oncologist Radiation Oncology 03/12/21 Nayla Deleon, PhD [address] [place] [address] Nurse Practitioner Radiation Oncology 08/22/21 Tye Winston MD [address] [place] [address] Surgeon Neurosurgery 09/03/22
--- OUTSIDE RECORDS SUMMARY | 2025-01-03 08:06 | XMS_ITS | Referral Summary ---
Author Organization [facility] Address [address] [place] [address] Care Team Providers Care Community Outreach Specialist Name Role Phone Chay Olvera MD Primary Care Provider [phone] Shelly Jay MD Unavailable Nayla Deleon PhD Unavailable [phone] Tye Winston MD Unavailable [phone] Allergies Active Allergy Reactions Criticality Noted Date [...] 12/28/2020 Assessment & Plan (12/28/2020 10:00 AM PERSONAL LINES SALES REP): Plan is to do MRI of the cervical spine. Should this be negative then may want to proceed with brain MRI as previously scheduled Cranial neuropathy 08/31/2020 Assessment & Plan (08/31/2020 9:04 AM PERSONAL LINES SALES REP): MRI with and without contrast Abdominal pain [...] on file Legal Sex Female 6:16 AM PERSONAL LINES SALES REP Gender Identity Female 08/28/2022 11:46 AM CDT Sexual Orientation Straight 08/28/2022 11 :46 AM CDT Last Filed Vital Signs Vital Sign Reading Time Taken Comments Blood Pressure 126/86 09/15/2024 2:37 PM PERSONAL LINES SALES REP Pulse 68 09/15/2024 2:37 PM PERSONAL LINES SALES REP Temperature - - Respiratory Rate 18 09/15/2024 2:37 PM PERSONAL LINES SALES REP Oxygen Saturation 100% 09/15/2024 2:37 PM PERSONAL LINES SALES REP Inhaled Oxygen Concentration - - Weight 72.8 kg (160 lb 6.4 oz) 09/15/2024 2:37 P M PERSONAL LINES SALES REP Height 162.6 cm (5' 4 ) 09/15/2024 2:37 PM PERSONAL LINES SALES REP Body Mass Index 27.53 09/15/2024 2:37 PM PERSONAL LINES SALES REP Plan of Treatment Not on file Procedures Procedure Name Priority Date/Time Associated Diagnosis Comments SCREENING MAMMOGRAM BILATERAL W GUZMAN Schedule Routine, Read Routine (OP Routine) 10/30/2023 9:26 AM PERSONAL LINES SALES REP Screening mammogram, encounter for from Last 3 Months or Most Recently Relevant to Health Maintenance Results * Screening Mammogram Bilateral W Guzman (10/30/2023 9:26 AM PERSONAL LINES SALES REP) Anatomical Region Laterality Modality Breast Bilateral Mammography Narrative 11/02/2023 1:41 PM PERSONAL LINES SALES REP Mammogram Technique: Bilateral Digital Breast Tomosynthesis, Bilateral C-view 2D Screening mammogram. Views obtained: bilateral craniocaudal and bilateral mediolateral oblique. Computer Aided Detection was performed. Mammogram Findings: The present examination has been compared to a prior imaging study performed at [facility] on 10/29/2022. The breasts are extremely dense, [...] to a prior imaging study performed at [facility] on 10/29/2022. The breasts are extremely dense, [...] Most Recently Relevant to Health Maintenance Insurance [facility] [place] [place] [address] WORKERS COMPENSATION GENERIC WORKERS COMPENSATION GENERIC Care Teams Community Outreach Specialist Relationship Specialty Start Date End Date Chay Olvera MD [address] [place] [address] PCP - General 07/20/17 Shelly Jay MD [address] [place] [address] Radiation Oncologist Radiation Oncology 03/12/21 Nayla Deleon, PhD [address] [place] [address] Nurse Practitioner Radiation Oncology 08/22/21 Tye Winston MD [address] [place] [address] Surgeon Neurosurgery 09/03/22
[2025-01-03 08:43] LABS: Basophils Percent Auto 0.7 % (0.2-1.2); Eosinophils Absolute Auto 0.1 K/mm3 (0-0.3); Eosinophils Percent Auto 2.6 % (0-4.4); Hematocrit 43.5 % (37.0-47.0); Immature Granulocyte Absolute 0.02 K/mm3 (0.00-0.031); Immature Granulocyte Percent A 0.4 % (0-0.5); Lymphocytes Absolute Auto 1.26 K/mm3 (0.9-3.2); Lymphocytes Percent Auto 23.3 % (18.3-44.2); Mean Corpuscular HGB Conc 32.2 g/dl (32-36); Mean Corpuscular Hemoglobin 30.2 pg (26-34); Mean Platelet Volume 10.2 fl (7.4-10.4); Monocytes Absolute Auto 0.5 K/mm3 (0.1-0.6); Neutrophils Absolute Auto 3.4 K/mm3 (1.3-6.7); Platelet Count Result 271 k/mm3 (150-375); Red Blood Count 4.63 M/mm3 (4.2-5.4); Red Cell Distribution Width 14.4 % (11.5-14.5); White Blood Count 5.4 K/mm3 (4.5-10.0)
[2025-01-03 08:51] LABS: Alanine Aminotransferase 14 U/L (6-35); Albumin Level 4.6 g/dL (3.5-5.1); Alkaline Phosphatase 76 U/L (38-126); Anion Gap 10 mmol/L (4-12); Aspartate Amino Transferase 20 U/L (14-36); Bilirubin,Total 0.6 mg/dL (0.2-1.3); Blood Urea Nitrogen 11 mg/dL (7-17); Calcium 9.3 mg/dL (8.4-10.2); Carbon Dioxide 22 mmol/L (22-30); Chloride 107 mmol/L (98-107); Cholesterol 174 mg/dL (0-200); Estimated Glomerular Filt Rate > 60; Glucose 91 mg/dL (65-110); HDL Direct 75 mg/dL; Potassium 4.2 mmol/L (3.4-5.0); Sodium 139 mmol/L (137-145); Triglycerides 69 mg/dL (<150)
[2025-01-03 09:03] LABS: LDL Cholesterol Direct 69 mg/dL
[2025-01-03 09:21] LABS: Thyroid Stimulating Hormone 0.559 uIU/mL (0.465-4.680)
[2025-01-03 09:22] LABS: Cortisol Random 9.37 ug/dL
[2025-01-03 09:56] LABS: Folic Acid > 20.0 ng/mL (2.76->20)
[2025-01-03 09:58] LABS: Free T3 3.13 pg/mL (2.71-6.16); Free T4 Free Thyroxine 1.11 ng/dL (0.78-2.19); Vitamin D 25 Hydroxy 40.8 ng/mL
[2025-01-03 10:39] LABS: Hemoglobin A1C 4.9 % (<5.7)
[2025-01-04 14:09] LABS: DHEA-Sulfate 86 mcg/dL (15-205); FSH 16.1 mIU/mL; LH 11.1 mIU/mL
[2025-01-06 04:28] LABS: Adrenocorticotropic Hormone 16 pg/mL (6-50)
== END 2025-01-03 07:58 | disposition home or self-care (01) ==
LOC: ANHLAB 07:59
PROVIDERS: PCP Nurse Practitioner Family; Visit Provider Internal Medicine Endocrinology, Diabetes & Metabolism
DX: E03.9 Hypothyroidism, unspecified (principal); E28.2 Polycystic ovarian syndrome; E55.9 Vitamin D deficiency, unspecified; N92.6 Irregular menstruation, unspecified; R53.83 Other fatigue; R73.01 Impaired fasting glucose
CPT/HCPCS: 36415; 80053; 80061; 82024; 82306; 82533; 82542; 82607; 82627; 82670; 82746; 83001; 83002; 83036; 83525; 83735; 84144; 84402; 84403; 84439; 84443; 84481; 85025

== ENCOUNTER 2025-02-22 13:30 | Emergency (ER) | payer OTHER, SELFPAY ==
[2025-02-22] VITALS (14 sets, daily range): BP systolic 116–141; BP diastolic 89–95; PULSE 63–79; RESP 12–20; TEMP 36.8; O2SAT 97–100
--- NOTE | 2025-02-22 13:31 | ECG_ITS ---
Test Date: 2025-02-22 13:37:23 Measurements Intervals Gamaliel Rate: 72 P: 43 AK: 136 QRS: 50 QRSD: 78 T: 34 QT: 379 QTc: 417 Interpretive Statements SINUS RHYTHM LOW QRS VOLTAGE IN PRECORDIAL LEADS BASELINE ARTIFACT- I, II, III, AVR, AVF BORDERLINE ECG No previous ECG available for comparison Electronically Signed On 02-22-2025 13:42:13 CDT by Tristan Moran D.O.
--- NOTE | 2025-02-22 13:37 | ED_ITS ---
HPI - Chest Pain General Chief Complaint: Chest Pain Stated Complaint: chest discomfort Time Seen by Provider: 02/22/25 13:37 History of Present Illness HPI narrative: Patient is a 44-year-old female who presents the ER with chest pain. Chest pain began on 02/18/2025 while she was out dancing. Sharp and central. Has had radiation to her left arm. Since then she has been having similar pains with exertion. This will occur when she walks into work from the car or when she is using the stairs. Pain will go away after resting. No diaphoresis or nausea or shortness of breath. No history of VT. Her father of heart attack in his mid 40s. She reports she took some ibuprofen yesterday she thought it helped her discomfort. No known injury to the chest though she did perform some chest compressions yesterday but she is having pain prior to that. Related Data Allergies Allergy/AdvReac Type Severity Reaction Status Date / Time gentamicin Allergy Severe rash, Verified 02/22/25 13:35 short of breath Review of Systems 2 Review of Systems: All systems reviewed & are unremarkable except as noted in HPI and below Constitutional: Constitutional: Reports no additional constitutional complaints Cardiovascular: Cardiovascular: Reports no additional cardiovascular complaints Respiratory: Respiratory: Reports no additional respiratory complaints Gastrointestinal: Gastrointestinal: Reports no additional gastrointestinal complaints [facility] Past Medical History Medical History Benign brain tumor radiation completed, under surveillance with neuro. Trigeminal neuralgia Anxiety GERD (gastroesophageal reflux disease) Surgical History Surgical History History of dilation and curettage History of laparoscopy History of breast biopsy History of tonsillectomy History of cholecystectomy Family History Family History Father Acute myocardial infarction, Onset Age: 45 Sibling Thrombosis Grandparent Diabetes mellitus Cerebrovascular accident Mother Hypertension Social History Social History (Updated 12/07/24 @ 08:22 by Xena Hernández MA) Years smoked: 8 Smoking status: Never smoker Tobacco type: cigarettes Alcohol intake: never Substance use: never Substance use type: does not use Do You Feel Safe in your Home?: Yes Lack of Transportation: No Lack of Food: Never True Current Housing: I Have Housing Concerned About Future Housing: No Difficulty Paying Gas/Electric Bills: No Difficulty Paying for Meds: No Education: Master's Degree or Higher Difficulty w/ Childcare or Family Care: No Living arrangements: with family Additional living arrangements comments: . Designates , Oumar Rai as surrogate. 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 HEAD: Normocephalic, atraumatic. ENT: Mucous membranes moist. CHEST: Clear to auscultation. No respiratory distress. HEART: Regular rate and rhythm. Normal peripheral pulses. ABDOMEN: Soft, nontender, nondistended. EXTREMITIES: Normal range of motion. No edema. SKIN: Warm, dry, no rash. NEURO: Alert and oriented x3. PSYCH: Normal mood and affect. Course Course Emergency Course: Patient resting comfortably. Troponin negative x2. Patient will contact her podiatric foot and ankle specialist for outpatient scheduling of stress test. Chest x-ray was not performed, patient declines further evaluation with imaging at this time. Vital Signs Vital signs: Vital Signs Pulse Rate 79 02/22/25 13:49 Respiratory Rate 18 02/22/25 13:49 Blood Pressure 132/94 H 02/22/25 13:49 Pulse Oximetry 100 02/22/25 13:49 Temperature 98.3 F 02/22/25 13:56 Pulse Rate 66 02/22/25 15:45 Respiratory Rate 18 02/22/25 15:45 Blood Pressure 116/90 02/22/25 15:31 Pulse Oximetry 98 02/22/25 15:45 Oxygen Delivery Room Air 02/22/25 13:56 MDM - Chest Pain Lab Data 02/22/25 13:49 02/22/25 13:49 Labs: Lab Results 02/22/25 02/22/25 Range/Units 13:49 16:21 WBC 5.5 (4.5-10.0) K/mm3 RBC 4.44 (4.2-5.4) M/mm3 Hgb 13.5 (12.0-15.0) g/dL Hct 42.3 (37.0-47.0) % MCV 95.3 (80-100) fl MCH 30.4 (26-34) pg MCHC 31.9 L (32-36) g/dl RDW 13.2 (11.5-14.5) % Plt Count 231 (150-375) k/mm3 MPV 10.2 (7.4-10.4) fl Immature Gran % (Auto) 0.4 (0-0.5) % Neut % (Auto) 61.3 (45.5-73.1) % Lymph % (Auto) 25.5 (18.3-44.2) % [place] % (Auto) 8.3 (2.6-8.5) % Eos % (Auto) 3.6 (0-4.4) % Baso % (Auto) 0.9 (0.2-1.2) % Lymph # (Auto) 1.41 (0.9-3.2) K/mm3 [place] # (Auto) 0.5 (0.1-0.6) K/mm3 Eos # (Auto) 0.2 (0-0.3) K/mm3 Baso # (Auto) 0.1 (0.0-0.1) K/mm3 Abs Immat Gran (auto) 0.02 (0.00-0.031) K/mm3 Absolute Neuts (auto) 3.4 (1.3-6.7) K/mm3 Absolute Nucleated RBC 0.000 (0.0-0.012) K/mm3 Nucleated RBC % 0.0 (0.0-0.2) % PT 13.4 (11.1-14.7) Seconds INR 1.0 APTT 27.6 (22.3-36.8) Seconds Sodium 141 (137-145) mmol/L Potassium 4.4 (3.4-5.0) mmol/L Chloride 105 (98-107) mmol/L Carbon Dioxide 24 (22-30) mmol/L Anion Gap 12 (4-12) mmol/L BUN 16 (7-17) mg/dL Creatinine 0.92 (0.7-1.0) mg/dL Estim Creat Clear Calc Not Reportable Estimated GFR > 60 (59 - ) Glucose 94 (65-110) mg/dL Calcium 9.1 (8.4-10.2) mg/dL Total Bilirubin 0.7 (0.2-1.3) mg/dL AST 20 (14-36) U/L ALT 14 (6-35) U/L Alkaline Phosphatase 73 (38-126) U/L Troponin I < 0.012 < 0.012 (0.000-0.034) ng/mL Total Protein 8.0 (6.3-8.2) g/dL Albumin 4.6 (3.5-5.1) g/dL Lipase 113 (23-300) U/L ECG Data EKG #1: ECG completion date: 02/22/25 ECG completion time: 16:22 EKG Interpretation: normal rate (63), sinus rhythm, no ST changes, normal QRS, normal QT and NL axis Discharge Plan Discharge Clinical Impression: Chest pain Patient Disposition: Home Condition: Stable Instructions: Chest Pain (ED) Additional Instructions: Please return to the emergency department if you develop severe and persistent chest pain, difficulty breathing, dizziness, leg swelling or if you are coughing up blood as these can be signs of a medical emergency. Please call your doctor for a follow up appointment to determine the need for further testing. Patient Language: Turkish Prescriptions: New naproxen 250 mg tablet 250 mg PO BID Qty: 14 0RF No Action levothyroxine [Unithroid] 50 mcg tablet 50 mcg PO DAILY Qty: 90 1RF Follow-up/Referrals: Jame Cho MD [Physician] - 1 Week Margaux Strickland, [employer] [Primary Care Provider] - Quality HEART score for chest pain patients History: moderately suspicious ECG: normal Age: < or = to 45 years Risk factors: 1 or 2 risk factors Troponin: < or = to 1x normal limit Heart score: 2
[2025-02-22 14:07] LABS: Alanine Aminotransferase 14 U/L (6-35); Albumin Level 4.6 g/dL (3.5-5.1); Alkaline Phosphatase 73 U/L (38-126); Anion Gap 12 mmol/L (4-12); Aspartate Amino Transferase 20 U/L (14-36); Basophils Absolute Auto 0.1 K/mm3 (0.0-0.1); Basophils Percent Auto 0.9 % (0.2-1.2); Bilirubin,Total 0.7 mg/dL (0.2-1.3); Blood Urea Nitrogen 16 mg/dL (7-17); Calcium 9.1 mg/dL (8.4-10.2); Carbon Dioxide 24 mmol/L (22-30); Chloride 105 mmol/L (98-107); Eosinophils Absolute Auto 0.2 K/mm3 (0-0.3); Eosinophils Percent Auto 3.6 % (0-4.4); Estimated Glomerular Filt Rate > 60; Glucose 94 mg/dL (65-110); Hematocrit 42.3 % (37.0-47.0); Hemoglobin 13.5 g/dL (12.0-15.0); Immature Granulocyte Absolute 0.02 K/mm3 (0.00-0.031); Immature Granulocyte Percent A 0.4 % (0-0.5); Lipase 113 U/L (23-300); Lymphocytes Absolute Auto 1.41 K/mm3 (0.9-3.2); Lymphocytes Percent Auto 25.5 % (18.3-44.2); Mean Corpuscular HGB Conc 31.9 g/dl (32-36); Mean Corpuscular Hemoglobin 30.4 pg (26-34); Mean Corpuscular Volume 95.3 fl (80-100); Mean Platelet Volume 10.2 fl (7.4-10.4); Monocytes Absolute Auto 0.5 K/mm3 (0.1-0.6); Monocytes Percent Auto 8.3 % (2.6-8.5); Neutrophils Absolute Auto 3.4 K/mm3 (1.3-6.7); Neutrophils Percent Auto 61.3 % (45.5-73.1); Platelet Count Result 231 k/mm3 (150-375); Potassium 4.4 mmol/L (3.4-5.0); Red Blood Count 4.44 M/mm3 (4.2-5.4); Red Cell Distribution Width 13.2 % (11.5-14.5); Sodium 141 mmol/L (137-145); White Blood Count 5.5 K/mm3 (4.5-10.0)
[2025-02-22 14:19] LABS: Troponin I < 0.012 ng/mL (0.000-0.034)
--- OUTSIDE RECORDS SUMMARY | 2025-02-22 14:20 | XMS_ITS | Clinical Summary ---
Author Organization [facility] Address [address] [place] [address] Care Team Providers Care Medical Billing Coder Name Role Phone Chay Olvera MD Primary Care Provider Shelyl Jay MD Unavailable Nayla Deleon PhD Unavailable [phone] Tye Winston MD Unavailable [phone] Allergies Active Allergy Reactions Criticality Noted Date [...] 12/28/2020 Assessment & Plan (12/28/2020 10:00 AM TALK SHOW HOST): Plan is to do MRI of the cervical spine. Should this be negative then may want to proceed with brain MRI as previously scheduled Cranial neuropathy 08/31/2020 Assessment & Plan (08/31/2020 9:04 AM TALK SHOW HOST): MRI with and without contrast Abdominal pain 09/13/2019 Abnormal mammogram 06/07/2019 Pain of finger 07/10/2017 Fatigue 12/16/2016 Palpitations 12/16/2016 Actinic keratosis 07/04/2016 Benign neoplasm of soft tissues 07/04/2016 Primary hypertension 09/18/2015 Shortness of breath 11/15/2013 Immunizations Immunization Administration Dates Next Due Influenza, Trivalent, High D ose, Split, Preservative Free, Intramuscular 07/27/2013 Surgical History Surgery Date Site/Laterality Comments [place] CHOLECYSTECTOMY Cholecystectomy - (Added by TW Conv) [place] TONSILLECTOMY PRIMARY/SECONDARY <AGE 12 Tonsillectomy - (Added [...] on file Legal Sex Female 6:16 AM TALK SHOW HOST Gender Identity Female 08/28/2022 11:46 AM CDT Sexual Orientation Straight 08/28/2022 11 :46 AM CDT Obstetrics History Last Filed Vital Signs Vital Sign Reading Time Taken Comments Blood Pressure 126/86 09/15/2024 2:37 PM TALK SHOW HOST Pulse 68 09/15/2024 2:37 PM TALK SHOW HOST Temperature - - Respiratory Rate 18 09/15/2024 2:37 PM TALK SHOW HOST Oxygen Saturation 100% 09/15/2024 2:37 PM TALK SHOW HOST Inhaled Oxygen Concentration - - Weight 72.8 kg (160 lb 6.4 oz) 09/15/2024 2:37 P M TALK SHOW HOST Height 162.6 cm (5' 4 ) 09/15/2024 2:37 PM TALK SHOW HOST Body Mass Index 27.53 09/15/2024 2:37 PM TALK SHOW HOST Plan of Treatment Health Maintenance Due Date [...] Read Routine (OP Routine) 10/30/2023 9:26 AM TALK SHOW HOST Screening mammogram, encounter for from Last 3 Months or Most Recently Relevant to Health Maintenance Results * Screening Mammogram Bilateral W Guzman (10/30/2023 9:26 AM TALK SHOW HOST) Anatomical Region Laterality Modality Breast Bilateral Mammography Narrative 11/02/2023 1:41 PM TALK SHOW HOST Mammogram Technique: Bilateral Digital Breast Tomosynthesis, Bilateral [...] COMPENSATION GENERIC WORKERS COMPENSATION GENERIC Care Teams Medical Billing Coder Relationship Specialty Start Date End Date Chay Olvera MD [address] [place] [address] PCP - General 07/20/17 Shelly Jay MD [address] [place] [address] Radiation Oncologist Radiation Oncology 03/12/21 Nayla Deleon, PhD [address] [place] [address] Nurse Practitioner Radiation Oncology 08/22/21 Tye Winston MD [address] [place] [address] Surgeon Neurosurgery 09/03/22
--- OUTSIDE RECORDS SUMMARY | 2025-02-22 14:20 | XMS_ITS | Referral Summary ---
Author Organization [facility] Address [address] [place] [address] Care Team Providers Care Campground Attendant Name Role Phone Chay Olvera MD Primary Care Provider [phone] Shelly Jay MD Unavailable Nayla Deleon PhD Unavailable [phone] Tye Winston MD Unavailable [phone] Allergies Active Allergy Reactions Criticality Noted Date [...] 12/28/2020 Assessment & Plan (12/28/2020 10:00 AM CUFF TURNER MACHINE OPERATOR): Plan is to do MRI of the cervical spine. Should this be negative then may want to proceed with brain MRI as previously scheduled Cranial neuropathy 08/31/2020 Assessment & Plan (08/31/2020 9:04 AM CUFF TURNER MACHINE OPERATOR): MRI with and without contrast Abdominal pain [...] on file Legal Sex Female 6:16 AM CUFF TURNER MACHINE OPERATOR Gender Identity Female 08/28/2022 11:46 AM CDT Sexual Orientation Straight 08/28/2022 11 :46 AM CDT Last Filed Vital Signs Vital Sign Reading Time Taken Comments Blood Pressure 126/86 09/15/2024 2:37 PM CUFF TURNER MACHINE OPERATOR Pulse 68 09/15/2024 2:37 PM CUFF TURNER MACHINE OPERATOR Temperature - - Respiratory Rate 18 09/15/2024 2:37 PM CUFF TURNER MACHINE OPERATOR Oxygen Saturation 100% 09/15/2024 2:37 PM CUFF TURNER MACHINE OPERATOR Inhaled Oxygen Concentration - - Weight 72.8 kg (160 lb 6.4 oz) 09/15/2024 2:37 P M CUFF TURNER MACHINE OPERATOR Height 162.6 cm (5' 4 ) 09/15/2024 2:37 PM CUFF TURNER MACHINE OPERATOR Body Mass Index 27.53 09/15/2024 2:37 PM CUFF TURNER MACHINE OPERATOR Plan of Treatment Not on file Procedures Procedure Name Priority Date/Time Associated Diagnosis Comments SCREENING MAMMOGRAM BILATERAL W GUZMAN Schedule Routine, Read Routine (OP Routine) 10/30/2023 9:26 AM CUFF TURNER MACHINE OPERATOR Screening mammogram, encounter for from Last 3 Months or Most Recently Relevant to Health Maintenance Results * Screening Mammogram Bilateral W Guzman (10/30/2023 9:26 AM CUFF TURNER MACHINE OPERATOR) Anatomical Region Laterality Modality Breast Bilateral Mammography Narrative 11/02/2023 1:41 PM CUFF TURNER MACHINE OPERATOR Mammogram Technique: Bilateral Digital Breast Tomosynthesis, Bilateral C-view 2D Screening mammogram. Views obtained: bilateral craniocaudal and bilateral mediolateral oblique. Computer Aided Detection was performed. Mammogram Findings: The present examination has been compared to a prior imaging study performed at [facility] on 10/29/2022. The breasts are extremely dense, [...] to a prior imaging study performed at [facility] on 10/29/2022. The breasts are extremely dense, [...] to Health Maintenance Insurance [facility] [place] [address] WORKERS COMPENSATION GENERIC WORKERS COMPENSATION GENERIC Care Teams Campground Attendant Relationship Specialty Start Date End Date Chay Olvera MD [address] [place] [address] PCP - General 07/20/17 Shelly Jay MD [address] [place] [address] Radiation Oncologist Radiation Oncology 03/12/21 Nayla Deleon, PhD [address] [place] [address] Nurse Practitioner Radiation Oncology 08/22/21 Tye Winston MD [address] [place] [address] Surgeon Neurosurgery 09/03/22
[2025-02-22 14:21] LABS: Partial Thromboplastin Time 27.6 Seconds (22.3-36.8); Prothrombin Time 13.4 Seconds (11.1-14.7)
--- OUTSIDE RECORDS SUMMARY | 2025-02-22 15:57 | XMS_ITS | Referral Summary ---
Author Organization [facility] Address [address] [place] [address] Care Team Providers Care Leather Roller Name Role Phone Chay Olvera MD Primary Care Provider Shelly Jay MD Unavailable Nayla Deleon PhD Unavailable [phone] Tye Winston MD Unavailable [phone] Allergies Active Allergy Reactions Criticality Noted Date [...] 12/28/2020 Assessment & Plan (12/28/2020 10:00 AM SUPPORT DBA): Plan is to do MRI of the cervical spine. Should this be negative then may want to proceed with brain MRI as previously scheduled Cranial neuropathy 08/31/2020 Assessment & Plan (08/31/2020 9:04 AM SUPPORT DBA): MRI with and without contrast Abdominal pain [...] on file Legal Sex Female 6:16 AM SUPPORT DBA Gender Identity Female 08/28/2022 11:46 AM CDT Sexual Orientation Straight 08/28/2022 11 :46 AM CDT Last Filed Vital Signs Vital Sign Reading Time Taken Comments Blood Pressure 126/86 09/15/2024 2:37 PM SUPPORT DBA Pulse 68 09/15/2024 2:37 PM SUPPORT DBA Temperature - - Respiratory Rate 18 09/15/2024 2:37 PM SUPPORT DBA Oxygen Saturation 100% 09/15/2024 2:37 PM SUPPORT DBA Inhaled Oxygen Concentration - - Weight 72.8 kg (160 lb 6.4 oz) 09/15/2024 2:37 P M SUPPORT DBA Height 162.6 cm (5' 4 ) 09/15/2024 2:37 PM SUPPORT DBA Body Mass Index 27.53 09/15/2024 2:37 PM SUPPORT DBA Plan of Treatment Not on file Procedures Procedure Name Priority Date/Time Associated Diagnosis Comments SCREENING MAMMOGRAM BILATERAL W GUZMAN Schedule Routine, Read Routine (OP Routine) 10/30/2023 9:26 AM SUPPORT DBA Screening mammogram, encounter for from Last 3 Months or Most Recently Relevant to Health Maintenance Results * Screening Mammogram Bilateral W Guzman (10/30/2023 9:26 AM SUPPORT DBA) Anatomical Region Laterality Modality Breast Bilateral Mammography Narrative 11/02/2023 1:41 PM SUPPORT DBA Mammogram Technique: Bilateral Digital Breast Tomosynthesis, Bilateral C-view 2D Screening mammogram. Views obtained: bilateral craniocaudal and bilateral mediolateral oblique. Computer Aided Detection was performed. Mammogram Findings: The present examination has been compared to a prior imaging study performed at [facility] on 10/29/2022. The breasts are extremely dense, [...] to a prior imaging study performed at [facility] on 10/29/2022. The breasts are extremely dense, [...] Most Recently Relevant to Health Maintenance Insurance [facility] [place] [id number] WORKERS COMPENSATION GENERIC WORKERS COMPENSATION GENERIC Care Teams Leather Roller Relationship Specialty Start Date End Date Chay Olvera MD [address] [place] [address] PCP - General 07/20/17 Shelly Jay MD [address] [place] [address] Radiation Oncologist Radiation Oncology 03/12/21 Nayla Deleon, PhD [address] [place] [address] Nurse Practitioner Radiation Oncology 08/22/21 Tye Winston MD [address] [place] [address] Surgeon Neurosurgery 09/03/22
--- OUTSIDE RECORDS SUMMARY | 2025-02-22 15:57 | XMS_ITS | Clinical Summary ---
Author Organization [facility] Address [address] [place] [address] Care Team Providers Care Motor Vehicle Assembler Name Role Phone Chay Olvera MD Primary Care Provider [phone] Shelly aJy MD Unavailable Nayla Deleon PhD Unavailable [phone] Tye Winston MD Unavailable [phone] Allergies Active Allergy Reactions Criticality Noted Date [...] 12/28/2020 Assessment & Plan (12/28/2020 10:00 AM EDUCATION INSTRUCTOR): Plan is to do MRI of the cervical spine. Should this be negative then may want to proceed with brain MRI as previously scheduled Cranial neuropathy 08/31/2020 Assessment & Plan (08/31/2020 9:04 AM EDUCATION INSTRUCTOR): MRI with and without contrast Abdominal pain 09/13/2019 Abnormal mammogram 06/07/2019 Pain of finger 07/10/2017 Fatigue 12/16/2016 Palpitations 12/16/2016 Actinic keratosis 07/04/2016 Benign neoplasm of soft tissues 07/04/2016 Primary hypertension 09/18/2015 Shortness of breath 11/15/2013 Immunizations Immunization Administration Dates Next Due Influenza, Trivalent, High D ose, Split, Preservative Free, Intramuscular 07/27/2013 Surgical History Surgery Date Site/Laterality Comments NM CHOLECYSTECTOMY Cholecystectomy - (Added by TW Conv) NM TONSILLECTOMY PRIMARY/SECONDARY <AGE 11 Tonsillectomy - (Added [...] on file Legal Sex Female 6:16 AM EDUCATION INSTRUCTOR Gender Identity Female 08/28/2022 11:46 AM CDT Sexual Orientation Straight 08/28/2022 11 :46 AM CDT Obstetrics History Last Filed Vital Signs Vital Sign Reading Time Taken Comments Blood Pressure 126/86 09/15/2024 2:37 PM EDUCATION INSTRUCTOR Pulse 68 09/15/2024 2:37 PM EDUCATION INSTRUCTOR Temperature - - Respiratory Rate 18 09/15/2024 2:37 PM EDUCATION INSTRUCTOR Oxygen Saturation 100% 09/15/2024 2:37 PM EDUCATION INSTRUCTOR Inhaled Oxygen Concentration - - Weight 72.8 kg (160 lb 6.4 oz) 09/15/2024 2:37 P M EDUCATION INSTRUCTOR Height 162.6 cm (5' 4 ) 09/15/2024 2:37 PM EDUCATION INSTRUCTOR Body Mass Index 27.53 09/15/2024 2:37 PM EDUCATION INSTRUCTOR Plan of Treatment Health Maintenance Due Date [...] Read Routine (OP Routine) 10/30/2023 9:26 AM EDUCATION INSTRUCTOR Screening mammogram, encounter for from Last 3 Months or Most Recently Relevant to Health Maintenance Results * Screening Mammogram Bilateral W Guzman (10/30/2023 9:26 AM EDUCATION INSTRUCTOR) Anatomical Region Laterality Modality Breast Bilateral Mammography Narrative 11/02/2023 1:41 PM EDUCATION INSTRUCTOR Mammogram Technique: Bilateral Digital Breast Tomosynthesis, Bilateral C-view 2D Screening mammogram. Views obtained: bilateral craniocaudal and bilateral mediolateral oblique. Computer Aided Detection was performed. Mammogram Findings: The present examination has been compared to a prior imaging study performed at [facility] on 10/29/2022. The breasts are extremely [...] to a prior imaging study performed at [facility] on 10/29/2022. The breasts are extremely [...] Most Recently Relevant to Health Maintenance Insurance [facility] Address: [address] [address] [facility] Address: [address] [address] [place] [address] [facility] Address[place] [address] [place] [address] [facility] Address: [address] [place], [place] [id number] WORKERS COMPENSATION GENERIC WORKERS COMPENSATION GENERIC Care Teams Motor Vehicle Assembler Relationship Specialty Start Date End Date Chay Olvera MD [address] [place] [address] PCP - General 07/20/17 Shelly Jay MD [address] [place] [address] Radiation Oncologist Radiation Oncology 03/12/21 Nayla Deleon, PhD [address] [place] [address] Nurse Practitioner Radiation Oncology 08/22/21 Tye Winston MD [address] [place] [address] Surgeon Neurosurgery 09/03/22
--- NOTE | 2025-02-22 16:13 | ECG_ITS ---
Test Date: 2025-02-22 16:22:58 Measurements Intervals [place] Rate: 63 P: 28 [place]: 135 QRS: 20 QRSD: 82 T: 29 QT: 384 QTc: 395 Interpretive Statements SINUS RHYTHM LOW QRS VOLTAGE IN PRECORDIAL LEADS BASELINE ARTIFACT- II, III, AVF BORDERLINE ECG Compared to ECG 02/22/2025 13:37:23 No significant changes Electronically Signed On 02-22-2025 17:47:05 CDT by Tristan Moran D.O.
[2025-02-22 16:51] LABS: Troponin I < 0.012 ng/mL (0.000-0.034)
== END 2025-02-22 17:20 | disposition home or self-care (01) ==
PROVIDERS: Emergency Provider Emergency Medicine; PCP Nurse Practitioner Family
DX: R07.9 Chest pain, unspecified (principal); K21.9 Gastro-esophageal reflux disease without esophagitis; F41.9 Anxiety disorder, unspecified; Z87.891 Personal history of nicotine dependence; Z90.49 Acquired absence of other specified parts of digestive tract; Z79.899 Other long term (current) drug therapy
CPT/HCPCS: 36415; 80053; 83690; 84484; 85025; 85610; 85730; 93005; 99284

== ENCOUNTER 2025-05-11 15:33 | Outpatient (CLI) | payer OTHER, SELFPAY ==
--- OUTSIDE RECORDS SUMMARY | 2025-05-11 15:38 | XMS_ITS | Patient Health Record ---
Author Organization [facility] Address [address] [place] [address] Care Team Providers Care Uptwister Tender Name Role Phone Frieda Bradford Primary Care Provider Allergies Allergen (clinical drug ingredient) Drug/Non Drug Allergy documented on EMR Reaction Allergy Type Onset Date Status gentamicin Gentamicin anaphylaxis Drug Allergy Act alberto Reason For Referral No Information Medications Medication SIG (Take, Route, Frequency, Duration) Notes Start Date End Date Status Unithroid 50 MCG Tablet 1 tablet in the morning on an empty stomach Orally Once a day Active Unithroid 75 MCG Tablet 1 tablet in the morning on an empty stomach Orally Once a day; Duration: 90 days 01/26/2025 Active Multivitamin Active Tirzepatide 2.5 MG/0.5ML Solution Auto-injector as directed Subcutaneous Active ZyrTEC 10 MG Tablet Chewable 1 tablet Orally Once a day A ctive Social History Section Notes: caffeine: yes, daily (20 oz. 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 Bradford [address] [place] [phone] 01/26/[address] 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 01/20/2025 Irregular menstruation, unspecified (ICD-10 - N92.6) 12/23/2024 Impaired fasting glucose (ICD-10 - R73.01) 12/23/2024 Other Assessment and Plan: Thyroid dysfunctionPatient reports abnormal thyroid labs with TSH of 0.560 in May and 0.424 in October, and T4 at 1.1, below the ideal range.Reduced levothyroxine dose from 75mcg to 37.5mcg due to prescription issues, reporting feeling unwell since.Symptoms include hot flashes, hair loss, and feeling unwell.Order full thyroid panel.Consider increasing levothyroxine dose to 88mcg pending lab results.Discontinue collagen supplements.Follow-up in 3 weeks. Menstrual irregularitiesPatient reports amenorrhea from July to November, with a resumption of menses recently.Describes current periods as super heavy with severe headaches and mood swings.History of PCOS noted.Check estrogen and progesterone levels.Order female hormone panel.Consider spironolactone for possible elevated testosterone. Metabolic concernsPatient reports a weight loss of 30 pounds with tirzepatide treatment, discontinued in June.Experienced blood sugar issues, brain fog, and sugar cravings.Reports feeling better on a 2.5mg dose.History of PCOS noted.Check A1C and insulin levels.Consider restarting tirzepatide at a lower dose (2.5mg) for PCOS management.Monitor weight and metabolic parameters. 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 Nutritional statusPatient started a multivitamin after noticing hair loss, which has since improved.No recent lab work outside of thyroid tests since May.Order comprehensive vitamin panel.Check iron, ferritin, and CBC.Assess need for vitamin supplementation based on lab results. Follow-up:Schedule a follow-up appointment in 3 weeks to review lab results and assess the response to interventions.Encourage patient to contact the clinic if any new or worsening symptoms occur. Spent 45 minutes preparing to see the patient (ex review of tests/chart), obtaining and / or reviewing separately obtained history, performing a medically appropriate examination and/or evaluation, counseling and educating the patient/family/caregive r, ordering medications, tests, or procedures, referring and communicating with other health cna caregiver, documenting clinical information in the electronic or other health record, independently interpreting results and communicating results to the patient/family/caregive r and care coordinating patient plan. Patient alert and oriented x 4 and aware of discussion noted above and in agreeance to plan in management of hypothyroidism, irregular menses, vitamin deficiencies/weight/imp aired glucose and lipid screening. 01/20/2025 Other Assessment and Plan: 1. Hypothyroidism- Continue levothyroxine 75 mcg daily- Consider increasing dose to 88 mcg or adding T3 in the afternoon if fatigue returns- Refill levothyroxine 75 mcg for 4 months- Follow up in 4 months 2. Weight Management- Continue tirzepatide 5 mg- Consider increasing to 7.5 mg dose as tolerated- Encourage hydration, high fiber and protein intake- Advise avoiding starch and refined sugars 3. Chronic Headaches- Continue current headache management- Consider trial of low-dose progesterone during the second half of menstrual cycle if headaches persist- Consider supplementation with methylated B12 and folic acid 4. Irregular Menstrual Cycles- Monitor menstrual cycle regularity and associated symptoms- Consider low-dose progesterone supplementation if symptoms worsen or headaches increase 5. Insomnia- Monitor sleep patterns and their correlation with menstrual cycle and stress levels- Consider progesterone supplementation if sleep disturbances persist or worsen Spent 25 minutes preparing to see the patient (ex review of tests/chart), obtaining and / or reviewing separately obtained history, performing a medically appropriate examination and/or evaluation, counseling and educating the patient/family/caregive r, ordering medications, tests, or procedures, referring and communicating with other health cna caregiver, documenting clinical information in the electronic or other health record, independently interpreting results and communicating results to the patient/family/caregive r and care coordinating patient plan. Patient alert and oriented x 4 and aware of discussion noted above and in agreeance to plan in management of hypothyroidism, vit Def, irregular cycles. Plan Of Treatment Next Appt Details Provider Name:Frieda Bradford, 09:00:00 AM, [address] [place] [address], [phone], Insurance Providers Payer Name Payer Address Payer Phone Subscriber Number Group Number Insured Name Patient Relationship to Insured Coverage Start Date Coverage End Date [facility] [address] [place] [address] [id number] [id number] Merle Arteaga Self - patient is the insured Medical (General) History Medical History History ICD Code SEASONAL ALLERGIES; MODERATE hypothyroidism Surgical History Surgery Date(Month/Year) tonsilectomy 1998 cholecystectomy 2001 wisdom teeth extraction 2003
--- OUTSIDE RECORDS SUMMARY | 2025-05-11 15:38 | XMS_ITS | Continuity of Care Document ---
Author Organization [facility] Address [address] [facility] [facility] [address] [place] [address] Phone Care Team Providers Care Medical Scribe Name Role Phone Garcia OD, Hammad Unavailable Unavailable Procedures Procedure Date Eye Exam, New Patient Refraction Advance Directives Directive Yes / No Effective Date File Name No Information Encounters Encounter Description Practice Location Reason(s) For Visit Diagnoses Date Provider Providers Copied on Encounter [facility], [address] [place] [address] [address], [place], [place], [id number], [place] tel:[phone] [facility] No Information 1-200 9 Garcia OD Hammad. [address] [place] , [address], [place], [address], [place]. tel:[phone] Family History Family Member Type Diagnosis Age At Onset No Information Payers Payer name Insurance type Covered alliance party ID Authoriza tion(s) No Information Social History Type Description Quantity Date Captured Comments Sex Female Smoking Status No Information Chief Complaint And Reason For Visit No Information Reason For Referral Reason For Referral No Information History Of Present Illness Encounter Date Complaint History Of Prese nt Illness No Information Functional Status Date Functional Assessmen t No Information Instructions Date Instruction Additional Infor mation No Information Assessments Type Assessment Date No Information Patient Care Teams Name Effective Dates (start - stop) Status Members No Information
--- OUTSIDE RECORDS SUMMARY | 2025-05-11 15:38 | XMS_ITS | Encounter Summary ---
Author Organization [facility] Healthcare Address [address] [place] [address] Care Team Providers Care Applied Psychology Chair Name Role Phone Chay Olvera MD Primary Care Provider [phone] Shelly Jay MD Unavailable Nayla Deleon PhD Unavailable [phone] Tye Winston MD Unavailable [phone] Encounter Details Date Type Department Care Team (Late st Contact Info) Description 05/10/2025 Telephone [facility] Medical Group Cardiology [address] [address] Jame Cho MD [address] [place] [address] Social History Tobacco Use Types Packs/Day Years Used Date Smoking Tobacco: Former Cigarettes Q uit: 2007 Smokeless Tobacco: Never AUDIT-C Answer Date Recorded Q1: How often [...] on file Legal Sex Female 6:16 AM PIPE LINE MAINTENANCE SUPERVISOR Gender Identity Female 08/28/2022 11:46 AM CDT Sexual Orientation Straight 08/28/2022 11 :46 AM CDT documented as of this encounter Miscellaneous Notes * Telephone Encounter - Xena Melendez RN - 05/10/2025 3:51 PM CDT Spoke with pt, pt reports intermittent exertional chest pain since February. Pt denies any pain now. Pt would like to see if she can get a sooner appt to be seen in the office. I do not see any sooner appointments with [facility]. Pt has not been seen since 2022. Reviewed with pt when to go to the ER. Added pts appt to wait list. Pt verbalizes understanding and appreciative of return call. * Telephone Encounter - Yazmin Art - 05/10/2025 2:36 PM CDT Pt states she has been having chest pain on and off for about a week or so. She was at ED on 02/22 due to chest pain as well. Requesting call to discuss. Contact: documented in this encounter Plan of Treatment Not on file documented as of this encounter Visit Diagnoses Not on filedocumented in this encounter Care Teams Applied Psychology Chair Relationship Specialty Start Date End Date Chay Olvera MD PCP - General 07/20/17 Shelly Jay MD [address] [facility] [address] [place] [address] Radiation Oncologist Radiation Oncology 03/12/21 Nayla Deleon, PhD [address] [facility] [address] [place] [address] Nurse Practitioner Radiation Oncology 08/22/21 Tye Winston MD [address] [facility] [address] [place] [address] Surgeon Neurosurgery 09/03/22 documented as of this encounter
--- OUTSIDE RECORDS SUMMARY | 2025-05-11 15:38 | XMS_ITS | Referral Summary ---
Author Organization [facility] Address [address] [place] [address] Care Team Providers Care Nurse Gynecology Name Role Phone Chay Olvera MD Primary Care Provider [phone] Shelly Jay MD Unavailable Nayla Deleon PhD Unavailable [phone] Tye Winston MD Unavailable [phone] Encounters Date Type Department Care Team Description 05/10/2025 Telephone [facility] Cardiology [address] [place] [address] Jame Cho MD 05/08/2025 6:51 AM CDT - 05/08/2025 11:59 PM CDT Hospital Encounter [facility] Breast Imaging [facility] [address] [place] [address] Screening mammogram, encounter for Discharge Disposition: Discharge to home or self [...] 12/28/2020 Assessment & Plan (12/28/2020 10:00 AM TAG MAKER): Plan is to do MRI of the cervical spine. Should this be negative then may want to proceed with brain MRI as previously scheduled Cranial neuropathy 08/31/2020 Assessment & Plan (08/31/2020 9:04 AM TAG MAKER): MRI with and without contrast Abdominal pain [...] on file Legal Sex Female 6:16 AM TAG MAKER Gender Identity Female 08/28/2022 11:46 AM CDT Sexual Orientation Straight 08/28/2022 11 :46 AM CDT Last Filed Vital Signs Vital Sign Reading Time Taken Comments Blood Pressure 126/86 09/15/2024 2:37 PM TAG MAKER Pulse 68 09/15/2024 2:37 PM TAG MAKER Temperature - - Respiratory Rate 18 09/15/2024 2:37 PM TAG MAKER Oxygen Saturation 100% 09/15/2024 2:37 PM TAG MAKER Inhaled Oxygen Concentration - - Weight 73 kg (161 lb) 05/08/2025 7:06 AM CDT Height 162.6 cm (5' 4) 09/15/2024 2:37 PM TAG MAKER Body Mass Index 27.64 09/15/2024 2:37 PM TAG MAKER Plan of Treatment Not on file Procedures Procedure Name Priority Date/Time Associated Diagnosis Comments SCREENING MAMMOGRAM BILATERAL W GUZMAN Schedule Routine, Read Routine (OP Routine) 05/08/2025 7:11 AM CDT Screening mammogram, encounter for from Last 3 Months Results * Screening Mammogram Bilateral W Guzman (05/08/2025 7:11 AM CDT) Anatomical Region Laterality Modality Breast Bilateral Mammography Impressions 05/09/2025 5:47 PM CDT Bilateral No evidence of malignancy in either breast. OVERALL BI-RADS FINAL ASSESSMENT: 1 - Negative RECOMMENDATION: Recommend bilateral annual screening mammography. Narrative 05/09/2025 5:47 PM CDT EXAMINATION: Screening Mammogram Bilateral W Guzman: 05/08/2025 COMPARISON: Relevant prior studies available at the time of interpretation were reviewed, including the most recent mammogram on: 10/30/2023. TECHNIQUE: Mammography was performed with 2D and digital breast tomosynthesis (DBT) images. CAD was utilized. BREAST PARENCHYMAL COMPOSITION: The breasts are extremely dense, which lowers the sensitivity of mammography. FINDINGS: Bilateral There is no suspicious mass, calcification, or architectural distortion in either breast. us Self Screening Mammogram IMG MAMMO PROCEDURES Fi nal Result from Last 3 Months Insurance [employer] [facility] WORKERS COMPENSATION GENERIC WORKERS COMPENSATION GENERIC Care Teams Nurse Gynecology Relationship Specialty Start Date End Date Chay Olvera MD PCP - General 07/20/17 Shelly Jay MD [address] [place] [address] Radiation Oncologist Radiation Oncology 03/12/21 Nayla Deleon, PhD [address] [place] [address] Nurse Practitioner Radiation Oncology 08/22/21 Tye Winston MD [address] [place] [address] Surgeon Neurosurgery 09/03/22
--- OUTSIDE RECORDS SUMMARY | 2025-05-11 15:38 | XMS_ITS | Clinical Summary ---
Author Organization [facility] Address [address] [place] [address] Care Team Providers Care Copier Technician Name Role Phone Chay Olvera MD Primary Care Provider [phone] Shelly Jay MD Unavailable Nayla Deleon PhD Unavailable [phone] Tye Winston MD Unavailable [phone] Allergies Active Allergy Reactions Criticality Noted Date [...] 12/28/2020 Assessment & Plan (12/28/2020 10:00 AM SEXOLOGIST): Plan is to do MRI of the cervical spine. Should this be negative then may want to proceed with brain MRI as previously scheduled Cranial neuropathy 08/31/2020 Assessment & Plan (08/31/2020 9:04 AM SEXOLOGIST): MRI with and without contrast Abdominal pain 09/13/2019 Abnormal mammogram 06/07/2019 Pain of finger 07/10/2017 Fatigue 12/16/2016 Palpitations 12/16/2016 Actinic keratosis 07/04/2016 Benign neoplasm of soft tissues 07/04/2016 Primary hypertension 09/18/2015 Shortness of breath 11/15/2013 Encounters Date Type Department Care Team Description 05/10/2025 Telephone [facility] Cardiology [address] [place] [address] Jame Cho MD 05/08/2025 6:51 AM CDT - 05/08/2025 11:59 PM CDT Hospital Encounter [facility] [address] [place] [address] Screening mammogram, encounter for Discharge Disposition: Discharge to home or self care from Last 3 Months Immunizations Immunization Administration Dates Next Due Influenza, Trivalent, High D ose, Split, Preservative Free, Intramuscular 07/27/2013 Surgical History Surgery Date Site/Laterality Comments [place] CHOLECYSTECTOMY Cholecystectomy - (Added by TW Conv) [place] TONSILLECTOMY PRIMARY/SECONDARY <AGE 12 Tonsillectomy - (Added [...] Family history of hypertension - (Added by Conv) Heart disease Paternal Grandfather Family history of cardiac disorder - (Added by Conv) Bleeding Disorder Sister Family his tory [...] on file Legal Sex Female 6:16 AM SEXOLOGIST Gender Identity Female 08/28/2022 11:46 AM CDT Sexual Orientation Straight 08/28/2022 11 :46 AM CDT Obstetrics History Para Term AB IAB SAB Ectopic Multiple Livin g Live Births 2 2 Date Outcome GA Total Labor Labor/2nd/3rd Weight Sex Type Anes PTL Lena A1 A5 Name Clin Last Filed Vital Signs Vital Sign Reading Time Taken Comments Blood Pressure 126/86 09/15/2024 2:37 PM SEXOLOGIST Pulse 68 09/15/2024 2:37 PM SEXOLOGIST Temperature - - Respiratory Rate 18 09/15/2024 2:37 PM SEXOLOGIST Oxygen Saturation 100% 09/15/2024 2:37 PM SEXOLOGIST Inhaled Oxygen Concentration - - Weight 73 kg (161 lb) 05/08/2025 7:06 AM CDT Height 162.6 cm (5' 4) 09/15/2024 2:37 PM SEXOLOGIST Body Mass Index 27.64 09/15/2024 2:37 PM SEXOLOGIST Plan of Treatment Health Maintenance Due Date Last Done Comments Cervical Cancer Screening 1979 Colon Cancer Screening-Colonoscopy 1979 Depression Screening 1979 Hepatitis C Screening 1979 DTaP/Tdap/Td Vaccine (1 - Tdap) 1990 Hepatitis B Screening 1997 Covid-19 Vaccine (4 - 2023-2 5 season) 2024 10/29/2021, 11/20/2020, 10/30/2020 Regular Well Visit/Exam 18-64 07/24/2024 07/24/2023 Influenza Vaccine (#1) 2025 , 07/27/2013 Breast Cancer Screening-Mammogram 05/08/2026 05/08/2025, 10/30/2023, 10/29/2022 HPV Vaccines Aged Out No longer eligi [...] nal Result from Last 3 Months Insurance [facility] Address: [address] [address] [facility] Address: [address] [address] [place] [address] [place] [address] [facility] Address: [address] [place] [address] [facility] Address: [place] [address] [employer] Care Teams Copier Technician Relationship Specialty Start Date End Date Chay Olvera MD PCP - General 07/20/17 Shelly Jay MD [address] [place] [address] Radiation Oncologist Radiation Oncology 03/12/21 Nayla Deleon, PhD [address] [facility] [address] [place] [address] Nurse Practitioner Radiation Oncology 08/22/21 Tye Winston MD [address] [place] [address] Surgeon Neurosurgery 09/03/22
[2025-05-11 16:09] LABS: Hematocrit 39.3 % (37.0-47.0); Hemoglobin 12.6 g/dL (12.0-15.0); Immature Granulocyte Percent A 0.2 % (0-0.5); Lymphocytes Absolute Auto 1.69 K/mm3 (0.9-3.2); Mean Corpuscular HGB Conc 32.1 g/dl (32-36); Mean Corpuscular Hemoglobin 30.6 pg (26-34); Mean Corpuscular Volume 95.4 fl (80-100); Nucleated Red Blood Cells Absolute Auto 0.000 K/mm3 (0.0-0.012); Nucleated Red Blood Cells Perc 0.0 % (0.0-0.2); Platelet Count Result 297 k/mm3 (150-375); Red Blood Count 4.12 M/mm3 (4.2-5.4); White Blood Count 6.3 K/mm3 (4.5-10.0)
[2025-05-11 16:42] LABS: Alanine Aminotransferase 15 U/L (6-35); Albumin Level 4.3 g/dL (3.5-5.1); Alkaline Phosphatase 69 U/L (38-126); Anion Gap 10 mmol/L (4-12); Aspartate Amino Transferase 25 U/L (14-36); Bilirubin,Total 0.3 mg/dL (0.2-1.3); Blood Urea Nitrogen 17 mg/dL (7-17); Calcium 9.2 mg/dL (8.4-10.2); Carbon Dioxide 25 mmol/L (22-30); Chloride 105 mmol/L (98-107); Estimated Glomerular Filt Rate 59; Glucose 87 mg/dL (65-110); Potassium 4.0 mmol/L (3.4-5.0); Sodium 140 mmol/L (137-145); Total Protein 7.6 g/dL (6.3-8.2)
[2025-05-11 17:19] LABS: Thyroid Stimulating Hormone 0.917 uIU/mL (0.465-4.680)
[2025-05-11 19:20] LABS: Free T4 Free Thyroxine 1.09 ng/dL (0.78-2.19)
[2025-05-12 06:33] LABS: Free T3 4.01 pg/mL (2.71-6.16)
[2025-05-15 11:08] LABS: Estradiol, Sensitive 33.4 pg/mL (.)
== END 2025-05-11 15:34 | disposition home or self-care (01) ==
LOC: ANHLAB 15:36
PROVIDERS: PCP Nurse Practitioner Family; Visit Provider Internal Medicine Endocrinology, Diabetes & Metabolism
DX: E06.3 Autoimmune thyroiditis (principal); E55.9 Vitamin D deficiency, unspecified; N92.6 Irregular menstruation, unspecified
CPT/HCPCS: 36415; 80053; 82670; 84144; 84439; 84443; 84481; 85025

== ENCOUNTER 2025-09-04 15:14 | Outpatient (CLI) | payer OTHER, SELFPAY ==
--- NOTE | ~2025-09-04 | US_ITS ---
EXAMINATION: US pelvic complete w TV, 09/04/2025 15:16 FRONTEND ENGINEER HISTORY: abnormal uterine bleeding Comparison: None Technique: Randolph-scale and color Doppler images were obtained. Findings: Uterus: Uterus anteverted 7.9 x 4.8 x 3.8 cm. . Endometrium 4 mm, there is a small cystic focus 3 x 3 mm which is old characterize, no increased flow. Right Ovary:Right ovary not identified. Left Ovary: Left ovary not identified. Free Fluid: None Impression: Cystic endometrial focus which is too small to characterize. 6 week follow-up recommended to assess Reviewed, dictated and finalized at location P. TEND ENGINEER Impression: Cystic endometrial focus which is too small to characterize. 6 week follow-up r ecommended to assess
== END 2025-09-04 15:15 | disposition home or self-care (01) ==
LOC: GOSHIMG 15:14
PROVIDERS: PCP Nurse Practitioner Family
DX: N93.8 Other specified abnormal uterine and vaginal bleeding (principal)
CPT/HCPCS: 76830; 76856

== ENCOUNTER 2025-09-05 07:24 | Outpatient (CLI) | payer OTHER, SELFPAY ==
--- OUTSIDE RECORDS SUMMARY | 2025-09-05 07:28 | XMS_ITS | Clinical Summary ---
Author Organization [facility] Address [address] [place] [address] Care Team Providers Care Vending Machine Coin Collector Name Role Phone Shelly Jay MD Unavailable Nayla Deleon PhD Unavailable [phone] Tye Winston MD Unavailable Margaux Strickland DIRECTOR OF COMMUNITY CENTER Primary Care Provider [phone] Allergies Active Allergy Reactions Criticality Noted Date Comments Doxycycline Nausea & Vomiting,Other (See comments) Low 09/03/2022 Gadolinium-Containing Contrast Media Palpitations Low 09/15/2024 Tachycardia, throat scratchy Gentamicin Rash Medium 09/15/2011 Medications Unithroid 88 mcg tablet TAKE 1 TABLET BY MOUTH EVERY DAY IN THE MORNING ON EMPTY STOMACH 05/23/2025 Active Active Problems Problem Noted Date Diagnosed [...] 12/28/2020 Assessment & Plan (12/28/2020 10:00 AM BUSINESS ANALYSIS ANALYST): Plan is to do MRI of the cervical spine. Should this be negative then may want to proceed with brain MRI as previously scheduled Cranial neuropathy 08/31/2020 Assessment & Plan (08/31/2020 9:04 AM BUSINESS ANALYSIS ANALYST): MRI with and without contrast Abdominal pain 09/13/2019 Abnormal mammogram 06/07/2019 Pain of finger 07/10/2017 Fatigue 12/16/2016 Palpitations 12/16/2016 Actinic keratosis 07/04/2016 Benign neoplasm of soft tissues 07/04/2016 Primary hypertension 09/18/2015 Shortness of breath 11/15/2013 Encounters Date Type Department Care Team Description 08/10/2025 Telephone [facility] [address] [place] [address] Keerthi Daigle MD Medical Records Request 07/25/2025 [facility] [address] [facility] 6th [place] [address] [place] [phone] Aissatou Coulter RN 07/24/2025 Orders Only [facility] [address] [facility] Floor [address], [address] [place] [address] Shakila Lin NP Meningioma (HCC) (Primary Dx) 07/24/2025 [facility] [address] [place], [place] [id number] Tamara Kaba MD 06/09/2025 11:30 AM CDT Office Visit [facility] Medical Group Cardiology [address] [place] [address] Jame Cho MD Other chest pain (Primary Dx); Primary hypertension from Last 3 Months Immunizations Immunization Administration Dates Next Due Influenza, Trivalent, High D ose, Split, Preservative Free, Intramuscular 07/27/2013 Surgical History Surgery Date Site/Laterality Comments [place] CHOLECYSTECTOM[place] Cholecystectomy - (Added by TW Conv) [place] TONSILLECTOMY PRIMARY/SECONDARY <AGE 12 Tonsillectomy - (Added [...] on file Legal Sex Female 6:16 AM BUSINESS ANALYSIS ANALYST Gender Identity Female 08/28/2022 11:46 AM CDT Sexual Orientation Straight 08/28/2022 11 :46 AM CDT Obstetrics History Para Term AB IAB SAB Ectopic Multiple Livin g Live Births 2 2 Date Outcome GA Total Labor Labor/2nd/3rd Weight Sex Type Anes PTL Lena A1 A5 Name Clin Last Filed Vital Signs Vital Sign Reading Time Taken Comments Blood Pressure 108/70 06/09/2025 11:28 AM CDT Pulse 84 06/09/2025 11:28 AM CDT Temperature - - Respiratory Rate 18 09/15/2024 2:37 PM BUSINESS ANALYSIS ANALYST Oxygen Saturation 98% 06/09/2025 11: 28 AM CDT Inhaled Oxygen Concentration - - Weight 75.2 kg (165 lb 11.2 oz) 025 11:28 AM CDT Height 165.1 cm (5' 5) 06/09/2025 11:2 8 AM CDT Body Mass Index 27.57 06/09/2025 11:28 AM CDT Plan of Treatment Health Maintenance Due Date Last Done Comments Cervical Cancer Screening 1979 Colon Cancer Screening-Colonoscopy 1979 Depression Screening 1979 Hepatitis C Screening 1979 DTaP/Tdap/Td Vaccine (1 - Tdap) 1990 Hepatitis B Screening 1997 Regular Well Visit/Exam 18-64 07/24/2024 07/24/2023 Covid-19 Vaccine (4 - 2024-2 6 season) 2025 10/29/2021, 11/20/2020, 10/30/2020 Influenza Vaccine (#1) 2025 , 07/27/2013 Breast Cancer Screening-Mammogram 05/08/2026 05/08/2025, 10/30/2023, 10/29/2022 HPV Vaccines Aged Out No longer eligi ble based on patient's age to complete this topic Pneumococcal vaccine <65 Aged Out No longer eligible based on patient's age to complete this topic Procedures Procedure Name Priority Date/Time Associated Diagnosis Comments ECG 12-LEAD Routine 06/09/2025 4:26 PM CDT Other chest pain POCT LIPID PANEL Routine 06/09/2025 2:46 PM CDT Primary hypertension SCREENING MAMMOGRAM BILATERAL W GUZMAN Schedule Routine, Read Routine (OP Routine) 05/08/2025 7:11 AM CDT Screening mammogram, encounter for from Last 3 Months or Most Recently Relevant to Health Maintenance Results * ECG 12 lead (06/09/2025 4:26 PM CDT) Jame Cho MD ECG ORDERABLES Final Re sult * (ABNORMAL) POCT lipid panel (06/09/2025 2:46 PM CDT) Cholesterol, POC 177 <200 MG/DL Comment:GLU = 96 HDL, POC 66 >=40 mg/dL Triglycerides, POC 586(A) <=149 mg/dL Non-HDL Cholesterol, POC 110 NONE mg/dL Cholesterol Total, POC 177 30 - 199 mg/dL Capillary blood 06/09/2025 2 :46 PM CDT Jame Cho MD POINT OF CARE TEST ORDER MIGUEL Final Result * Screening Mammogram Bilateral W Guzman (05/08/2025 [...] calcification, or architectural distortion in either breast. Self Screening Mammogram IMG MAMMO PROCEDURES Fi nal Result from Last 3 Months or Most Recently Relevant to Health Maintenance Insurance [facility] [employer] GENER[employer] Care Teams Vending Machine Coin Collector Relationship Specialty Start Date End Date Margaux Strickland, DIRECTOR OF COMMUNITY CENTER [address] [place] [address] PCP - General Family Medicine 06/09/25 Shelly Jay MD [address] [facility] [address] [place] [address] Radiation Oncologist Radiation Oncology 03/12/21 Nayla Deleon, PhD [address] [facility] [address] [place] [address] Nurse Practitioner Radiation Oncology 08/22/21 Tye Winston MD [address] [facility] [address] [place] [address] Surgeon Neurosurgery 09/03/22
--- OUTSIDE RECORDS SUMMARY | 2025-09-05 07:28 | XMS_ITS | Patient Health Record ---
Author Organization [facility] Address [address] [place] [address] Care Team Providers Care Scouring Machine Tender Name Role Phone Frieda Bradford Primary Care Provider Allergies Allergen (clinical drug ingredient) Drug/Non Drug Allergy documented on EMR Reaction Allergy Type Onset Date Status gentamicin Gentamicin anaphylaxis Drug Allergy Act alberto Reason For Referral No Information Medications Medication SIG (Take, Route, Frequency, Duration) Notes Start Date End Date Status Unithroid 88 MCG Tablet 1 tablet in the morning on an empty stomach Orally Once a day; Duration: 90 days 05/18/2025 Active Unithroid 75 MCG Tablet 1 tablet in the morning on an empty stomach Orally Once a day; Duration: 90 days 01/26/2025 Active Multivitamin Active ZyrTEC 10 MG Tablet Chewable 1 tablet Orally Once a day Active Tirzepatide 2.5 MG/0.5ML Solution Auto-injector as directed Subcutaneous Unknown Social History Section Notes: caffeine: yes, daily (20 oz. ) caffeine: yes, daily (20 oz. 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 Bradford [address] [place] [phone] 01/26/[address] 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 Nutritional statusPatient started [...] procedures, referring and communicating with other health urgent care physician, documenting clinical information in the electronic or [...] procedures, referring and communicating with other health urgent care physician, documenting clinical information in the electronic or other health record, independently interpreting results and communicating results to the patient/family/caregive r and care coordinating patient plan. Patient alert and oriented x 4 and aware of discussion noted above and in agreeance to plan in management of hypothyroidism, vit Def, irregular cycles. 05/18/2025 Helena Bloom, a perimenopausal patient with hypothyroidism and PCOS, presents for follow-up of thyroid function and hormone levels, reporting worsening menopause symptoms and sleep disturbances. HypothyroidismAssessmen t: Patient is currently on Unithroid 75 mcg. Recent thyroid function tests show T4 at 1.0 and TSH at 0.9, with T3 in the low normal range. These values indicate room for adjustment in thyroid medication dosage.Plan:- Increase Unithroid to 88 mcg PO daily- Reassess thyroid function in 3-6 months- Consider adding liothyronine (Cytomel) in the afternoon if fatigue persists after dose adjustment PerimenopauseAssessment : Patient reports worsening menopause symptoms. Recent hormone levels show low progesterone (2.4, with ideal being 10) and low estrogen (33, with ideal range 90-130). FSH and LH levels from December were not significantly elevated, consistent with perimenopause rather than full menopause.Plan:- Discuss hormone replacement options with tree doctor at upcoming appointment in June- Consider trial of progesterone if symptoms persist Polycystic Ovary Syndrome (PCOS)Assessment: Patient has a history of PCOS with ongoing symptoms. Previously tried metformin but experienced intolerable side effects. Considering restarting tirzepatide for symptom management and weight control.Plan:- Restart tirzepatide 5 mg after May- Provide samples of tirzepatide- Monitor for efficacy in managing PCOS symptoms and weight InsomniaAssessment: Patient reports severe sleep disturbances, possibly related to hormonal changes. Previous cortisol levels were within normal limits.Plan:- Reassess sleep quality after thyroid medication adjustment and hormone level stabilization- Consider sleep study if insomnia persists despite hormonal optimization Spent 25 minutes preparing to see the patient (ex review of tests/chart), obtaining and / or reviewing separately obtained history, performing a medically appropriate examination and/or evaluation, counseling and educating the patient/family/caregive r, ordering medications, tests, or procedures, referring and communicating with other health urgent care physician, documenting clinical information in the electronic or other health record, independently interpreting results and communicating results to the patient/family/caregive r and care coordinating patient plan. Patient alert and oriented x 4 and aware of discussion noted above and in agreeance to plan in management of hypothyroidism, irregular cycles/perimenopausal changes likely causing sleep disturbances and weight management/recommendati ons. p Plan Of Treatment Next Appt Details Provider Name:Frieda Bradford, 08:20:00 AM, [address] [place] [address], [phone], Insurance Providers Payer Name Payer Address Payer Phone Subscriber Number Group Number Insured Name Patient Relationship to Insured Coverage Start Date Coverage End Date [facility] [address] [place] [address] [phone] [id number] Merle Arteaga Self - patient is the insured Medical (General) History Medical History History ICD Code SEASONAL ALLERGIES; MODERATE hypothyroidism Surgical History Surgery Date(Month/Year) tonsilectomy 1998 cholecystectomy 2001 wisdom teeth extraction 2003
[2025-09-05 07:57] LABS: Hematocrit 43.2 % (37.0-47.0); Hemoglobin 13.9 g/dL (12.0-15.0); Immature Granulocyte Percent A 0.4 % (0-0.5); Lymphocytes Absolute Auto 1.41 K/mm3 (0.9-3.2); Mean Corpuscular HGB Conc 32.2 g/dl (32-36); Mean Corpuscular Hemoglobin 30.1 pg (26-34); Mean Corpuscular Volume 93.5 fl (80-100); Nucleated Red Blood Cells Absolute Auto 0.000 K/mm3 (0.0-0.012); Nucleated Red Blood Cells Perc 0.0 % (0.0-0.2); Platelet Count Result 288 k/mm3 (150-375); Red Blood Count 4.62 M/mm3 (4.2-5.4); White Blood Count 5.2 K/mm3 (4.5-10.0)
[2025-09-05 08:11] LABS: Alanine Aminotransferase 14 U/L (6-35); Albumin Level 4.4 g/dL (3.5-5.1); Alkaline Phosphatase 72 U/L (38-126); Anion Gap 7 mmol/L (4-12); Aspartate Amino Transferase 20 U/L (14-36); Bilirubin,Total 0.4 mg/dL (0.2-1.3); Blood Urea Nitrogen 14 mg/dL (7-17); Calcium 9.3 mg/dL (8.4-10.2); Carbon Dioxide 27 mmol/L (22-30); Chloride 106 mmol/L (98-107); Cholesterol 185 mg/dL (0-200); Estimated Glomerular Filt Rate 52; Glucose 80 mg/dL (65-110); HDL Direct 73 mg/dL; Potassium 4.8 mmol/L (3.4-5.0); Sodium 140 mmol/L (137-145); Total Protein 7.6 g/dL (6.3-8.2); Triglycerides 72 mg/dL (<150)
[2025-09-05 09:02] LABS: Vitamin B12 728.0 pg/mL (239-931)
[2025-09-05 10:44] LABS: Free T3 3.50 pg/mL (2.71-6.16); Free T4 Free Thyroxine 1.12 ng/dL (0.78-2.19)
[2025-09-05 11:20] LABS: Thyroid Stimulating Hormone 0.312 uIU/mL (0.465-4.680)
== END 2025-09-05 07:25 | disposition home or self-care (01) ==
PROVIDERS: PCP Nurse Practitioner Family; Visit Provider Internal Medicine Endocrinology, Diabetes & Metabolism
DX: E03.9 Hypothyroidism, unspecified (principal); N92.6 Irregular menstruation, unspecified; E66.3 Overweight; Z13.220 Encounter for screening for lipoid disorders; E55.9 Vitamin D deficiency, unspecified; R53.83 Other fatigue
CPT/HCPCS: 36415; 80053; 80061; 82306; 82607; 84439; 84443; 84481; 85025